=== PATIENT | female | born 1955 | race Caucasian/White ===

== ENCOUNTER 2019-08-29 16:11 | Outpatient (REF) | payer BC, SELFPAY | END 2019-08-29 16:31 | LOC: NCHCN 16:11 | PROVIDERS: PCP Internal Medicine; Visit Provider Nurse Practitioner Family | DX: N39.0 Urinary tract infection, site not specified (principal) | CPT/HCPCS: 87077; 87086; 87186 ==

== ENCOUNTER 2020-03-22 14:33 | Outpatient (REF) | payer BC, SELFPAY ==
[2020-03-22 19:46] LABS: Bilirubin Negative (Negative); Blood Trace-intact (Negative); Clarity Clear (Clear); Glucose Negative (Negative); Ketones Negative (Negative); Leukocyte Esterase Negative (Negative); Nitrite Negative (Negative); Specific Gravity <= 1.005 (1.005-1.025); Urobilinogen 0.2 EU/dL (Up TO 0.2)
[2020-03-22 19:55] LABS: Bacteria Negative HPF (Negative); C & S Indicated? No; Casts Negative LPF (Negative); Crystals Negative HPF (Negative); Epithelial Cells Few HPF (Negative); Mucus Negative (Negative); RBC 0-2 HPF (0-2); WBC 0-2 HPF (0-5)
== END 2020-03-22 14:53 ==
LOC: NCHCN 14:33
PROVIDERS: PCP Internal Medicine; Visit Provider Nurse Practitioner Family
DX: R35.0 Frequency of micturition (principal)
CPT/HCPCS: 81003; 81015

== ENCOUNTER 2020-03-26 08:05 | Outpatient (REF) | payer BC, SELFPAY ==
[2020-03-26 19:11] LABS: ALT 20 U/L (14-59); AST 30 U/L (15-37); Albumin 3.7 g/dL (3.4-5.0); Alkaline Phosphatase 50 U/L (46-116); Anion Gap 6.9 mmol/L (3-11); BUN 11 mg/dL (7-18); Bilirubin, Total 0.8 mg/dL (0.2-1.0); CO2 29.1 mmol/L (21.0-32.0); CREATININE 0.89 mg/dL (0.55-1.02); Calcium 9.3 mg/dL (8.5-10.1); Chloride 100 mmol/L (98-107); Glucose 74 mg/dL (74-106); Sodium 136 mmol/L (136-145); Total Protein 6.8 g/dL (6.4-8.2)
== END 2020-03-26 08:25 ==
LOC: NCHCN 08:05
PROVIDERS: PCP Internal Medicine; Visit Provider Nurse Practitioner
DX: Z00.00 Encounter for general adult medical examination without abnormal findings (principal); I10 Essential (primary) hypertension
CPT/HCPCS: 80053

== ENCOUNTER 2020-09-17 13:28 | Outpatient (REF) | payer BC, SELFPAY ==
[2020-09-17 19:51] LABS: HCT 36.5 % (36.0-46.0); HGB 12.9 g/dL (11.2-15.7); MCH 34.1 pg (27.0-33.0); MCHC 35.3 % (32.0-36.0); MCV 96.6 fL (80-95); MPV 10.4 fL (8.0-11.0); Platelet Count 252 10^3/uL (130-400); RBC 3.78 10^6/uL (3.93-5.22); RDW 11.7 % (11.7-14.6); RDW-SD 41.2 fL; WBC 5.93 10^3/uL (4.4-10.8)
[2020-09-17 20:04] LABS: Iron 89 ug/dL (50-170); Total Iron Binding Capacity 286 ug/dL (250-450); Transferrin Sat 31 % (15-50)
[2020-09-17 20:11] LABS: Anion Gap 9.5 mmol/L (3-11); BUN 11 mg/dL (7-18); CO2 28.5 mmol/L (21.0-32.0); CREATININE 0.8 mg/dL (0.55-1.02); Calcium 9.3 mg/dL (8.5-10.1); Chloride 98 mmol/L (98-107); Glucose 98 mg/dL (74-106); Potassium 3.8 mmol/L (3.5-5.1); Sodium 136 mmol/L (136-145); TSH (W/Ref FT4) 2.18 uIU/mL (0.36-3.74)
== END 2020-09-17 13:29 | disposition home or self-care (01) ==
LOC: NCHCN 13:28
PROVIDERS: PCP Internal Medicine; Visit Provider Nurse Practitioner Family
DX: I10 Essential (primary) hypertension (principal); R20.8 Other disturbances of skin sensation; M79.18 Myalgia, other site
CPT/HCPCS: 80048; 85027; 83540; 83550; 83735; 84443

== ENCOUNTER 2021-01-06 18:19 | Emergency (ER) | payer BC, SELFPAY | END 2021-01-06 18:59 | PROVIDERS: PCP Internal Medicine | DX: Z53.21 Procedure and treatment not carried out due to patient leaving prior to being seen by health care provider (principal) ==

== ENCOUNTER 2021-03-28 01:57 | Outpatient (CLI) | payer BC, SELFPAY ==
[2021-03-28 10:43] LABS: Source Nasal/Nares
[2021-03-28 13:18] LABS: COVID-19 PCR Negative (Negative)
== END 2021-03-28 01:58 | disposition home or self-care (01) ==
LOC: LBO 01:58
PROVIDERS: PCP Physician Assistant; Visit Provider Ophthalmology
DX: Z20.822 Contact with and (suspected) exposure to COVID-19 (principal); Z01.818 Encounter for other preprocedural examination
CPT/HCPCS: 87635

== ENCOUNTER 2021-03-31 06:26 | Day surgery (SDC) | payer BC, SELFPAY ==
[2021-03-31 06:34] VITALS: BP 142/94; PULSE 54; RESP 16; TEMP 36.4; O2SAT 99
[2021-03-31] MEDS: Tropicam./Phenyleph. (1/2.5%) 5 ML BTL OS ×3 (06:45→06:55)
--- NOTE | 2021-03-31 06:55 | W.ANESPRE ---
General Info Date of Service Date Performed: 03/31/21 Height: 5 ft 6.1 in Weight: 62.2 kg Body Mass Index (BMI): 22.0 Surgical Procedure: Operation Date: 03/31/21 07:40 Proposed Procedures Side Surgeon p Cataract Extraction with IOL Implant Left Mo Parker MD Meds Allergies and Home Medications Allergies Allergy/AdvReac Type Severity Reaction Status Date / Time ciprofloxacin [From Cipro] Allergy Severe Skin Rash Unverified 03/27/21 11:13 Sulfa (Sulfonamide Allergy Severe Skin Rash Unverified 03/27/21 11:13 Antibiotics) Home Medication Medication Instructions Recorded atenolol 25 mg PO DAILY 08/10/17 lisinopril 20 mg PO DAILY 03/27/21 Current Visit Medications: Current Medications Generic Name Dose Route Start Last Admin Trade Name Freq PRN Reason Stop Dose Admin Acetaminophen 1,000 mg 03/31/21 06:00 Acetaminophen 500 Mg Tab PO Q4H PRN PRN Miscellaneous Medication 0 ml 03/31/21 06:00 Prednisolone 1%, Moxifloxacin 0.5%, Nepafenac 0.1% 5ml Btl OS DIRECTED ALYCIA Miscellaneous Medication 0 ml 03/31/21 06:00 03/31/21 06:55 Tropicam./Phenyleph. (1/2.5%) 5 Ml Btl OS 1 drp DIRECTED ALYCIA Administration Tetracaine HCl 0 ml 03/31/21 06:00 Tetracaine 0.5% 4 Ml Btl OS DIRECTED ALYCIA PFSH Active Problems Active Problems: Problem Status Onset Code Posterior subcapsular age-related cataract of left eye H25.042 Nuclear sclerotic cataract of left eye H25.12 Medical History Medical History (Updated 03/29/21 @ 10:17 by Mo Parker MD) Hypertension Surgical History Surgical History (Updated 03/27/21 @ 11:23 by Priyanka Pineda RN) History of colonoscopy History of surgery tennis elbow Tobacco Smoking/Tobacco Use Status: Former Tobacco Use Substance Use Substance use: Rarely Substance use type: marijuana Vital Signs and Lab Results Vital Signs Most Recent Vital Signs in EMR: Most Recent Vital Signs Temp Pulse Resp BP Pulse Ox 36.4 C L 54 L 16 142/94 H 99 03/31/21 06:34 03/31/21 06:34 03/31/21 06:34 03/31/21 06:34 03/31/21 06:34 Lab Results Blood Type / Crossmatch: No Data to Display Complete Blood Count: No Data to Display Complete Metabolic Panel: No Data to Display Liver Function Panel: No Data to Display Coagulation Panel: No Data to Display Cardiac Panel: No Data to Display Arterial Blood Gas: No Data to Display Venous Blood Gas: No Data to Display Pancreas Panel: No Data to Display Thyroid Panel: No Data to Display Infectious Disease: Coronavirus (COVID-19)(PCR) Negative (Negative) 03/28/21 08:27 03/28/21 Coronavirus 2019 Source Nasal/Nares 03/28/21 08:27 03/28/21 Blood Cultures: No Data to Display Toxicology Panel: No Data to Display Anesthesia Assessment and Plan Anesthesia History Personal History: No History of Anesthesia Complications Family History: No Family History of Anesthesia Complications Exercise Tolerance Exercise Tolerance: Metabolic Equivalents>4 Pertinent Negatives Pertinent Negatives: No Symptoms of GERD, No Major Cardiovascular Symptoms or Complaints, No Major Pulmonary Symptoms or Complaints and No History of CVA/TIA Cardiac & Pulmonary Exam Cardiac Exam: Normal S1/S2 Heart Sounds Pulmonary Exam: Clear Bilateral Breath Sounds Airway Exam Known Difficult Airway: No Mallampati Class: 1 Mouth Opening: Normal (> 3cm) Thyromental Distance: Greater than 3 cm Neck Range of Motion: Full ROM Neck Circumference: Normal Teeth Condition: Normal Dentition Airway Comments: #11 crowns ASA Classification ASA Score: ASA 2 Emergency Case?: No NPO Status NPO Status: NPO Clears >2 hours, Solids >8 hours Anesthesia Plan Resuscitation Status: Full Code Anesthesia Technique: MAC Anesthesia Airway Planned: Natural Airway Monitors Used: Standard Monitors
[2021-03-31 07:01] VITALS: BMI 22.0
[2021-03-31] MEDS: Balanced Salt Soln.-PLUS 500 ML BAG (07:35)
[2021-03-31] MEDS: Lidocaine 1% Pres-Free 5 ML VIAL (07:36)
[2021-03-31] MEDS: Lidocaine 2% Jelly 6 ML SYR (07:37)
[2021-03-31] MEDS: Duovisc Viscoelastic System EACH 1 EACH (07:37)
[2021-03-31] MEDS: Povidone-Iodine Ophth 30 ML BTL (07:38)
[2021-03-31] MEDS: Tetracaine 0.5% 4 ML BTL OS (07:38)
--- NOTE | 2021-03-31 07:54 | W.ANESPOSTOP ---
Postoperative Evaluation Date, Time and Location Date Performed: 03/31/21 Time Performed: 07:54 Patient Location: Day Surgery Unit Vital Signs Most Recent Imported Vital Signs: Most Recent Vital Signs Temp Pulse Resp BP Pulse Ox 36.4 C L 54 L 16 142/94 H 99 03/31/21 06:34 03/31/21 06:34 03/31/21 06:34 03/31/21 06:34 03/31/21 06:34 Pain Score Most Recent Pain Score: Most Recent Pain Score Pain Level 0 03/31/21 06:34 Assessment Mental Status: Awake (Alert & Oriented to Patient Baseline) Airway and Respiratory Function: Patent airway with normal (patient baseline) respiratory exam Cardiovascular Function: Hemodynamically Stable Hydration Status: Adequately Hydrated Nausea & Vomiting: No Nausea or Vomiting Pain: Pt. Denies Any Pain Peripheral Nerve Block: Patient did not receive a nerve block
[2021-03-31 07:55] VITALS: BP 104/67; PULSE 51; RESP 16; TEMP 36.3; O2SAT 94
--- NOTE | 2021-03-31 07:55 | W.PM.DSUDISC ---
Discharge Plan Disposition Patient Disposition: HOME Condition: Good Discharge Details Attending Provider: Mo Parker Primary Care Provider: Demetris Duffy Home Meds and New Rx's Prescriptions: No Action lisinopril 20 mg Tablet 20 mg PO DAILY RF: 0 atenolol 25 MG tablet 25 mg PO DAILY RF: 0 Discharge Instructions Stand Alone Forms: Post-op Topical Cataract, Heath [place] ([facility]) Discharge Orders Discharge Orders: Discharge Order (Routine); Ordered 03/31/21 Ordered By: Mo Parker DS: Diagnosis Discharge Diagnosis (1) Posterior subcapsular age-related cataract of left eye: Status: Resolved (2) Nuclear sclerotic cataract of left eye: Status: Resolved
--- NOTE | 2021-03-31 07:56 | ROE_ITS ---
Date of service: 03/31/21 Time of Service: 07:56 Operative Note Operative Note DATE OF PROCEDURE: 03/31/21 PRE-OP DIAGNOSIS: Nuclear/posterior subcapsular cataract, left eye POST-OP DIAGNOSIS: same PROCEDURE: Cataract extraction using phacoemulsification with intraocular lens implant, left eye SURGEON: Mo Parker ANESTHESIA TYPE: Local By Surgeon and MAC Refer to Anesthesia Record PATHOLOGY: none sent COMPLICATIONS: None Patient was transported to: same day Patient's condition: stable Implants: Cade and Cade / [employer] Tecnis [id number] Indications: Progressive decreased vision due to cataract, left eye, with poor red reflex Procedure Description: CATARACT SURGERY OPERATIVE REPORT PREOPERATIVE DIAGNOSIS: 1. Nuclear/posterior subcapsular cataract, left eye POSTOPERATIVE DIAGNOSIS: Same OPERATION: 1. Cataract extraction using phacoemulsification with posterior chamber intraocular lens implant, left eye. IOL: IOL Shipping Receiving Manager/Model: Cade & Cade / GERMÁN Tecnis [id number] IOL Power: + 18.5 diopters IOL Serial Number: [id number] Optic Diameter: 6.0 mm Haptic/Overall Diameter: 13.0 mm PHACO INFO: [employer] - [employer] [place] Vision System with OZil and Active Fluidics Cumulative Dispersed Energy (CDE): 5.28 seconds SURGEON: Mo Parker MD, ALESIA ANESTHESIA: Monitored A [facility] (MAC), with local sub-tenon's anesthetic infiltration COMPLICATIONS: None SPECIMENS: None INDICATIONS FOR PROCEDURE: The patient is a 65-year-old lady with history of diminished visual acuity in her left eye. She is noted to have a moderate nuclear and posterior subcapsular cataract. The option of cataract surgery was offered to the patient and she felt she was symptomatic enough that she wished to proceed. PROCEDURE: The correct surgical eye was identified and marked as the left eye and the pupil was dilated in the preoperative area using mydriatics and cycloplegics. The dilated pupil size was 6.5 mm. She elected to proceed without oral sedation. The patient was brought to the operating room where cardiopulmonary monitoring was instituted and surgical time-out was performed, confirming the correct operative eye and IOL power. Topical anesthesia was administered and ophthalmic povidone-iodine 5% was instilled into the conjunctival fornices. Lidocaine gel was applied to the cornea and the kian-ocular area was prepped with Betadine 10% solution and draped in the usual sterile fashion for intraocular surgery, including an aperture drape. A Tegaderm transparent film dressing was cut in half and used to cover the lashes and lid margins. Care was taken to sequester the lashes and lid margins under the Tegaderm dressing. A lid speculum was placed between the lids of the operative eye and the Mil-Flavio operating microscope was maneuvered into position. Paul scissors were then used to make a conjunctival buttonhole approximately 6mm posterior to the limbus in the inferonasal quadrant. Blunt dissection was carried out to expose bare sclera, and a blunt-tipped sub-tenon?s anesthesia cannula was introduced and passed posteriorly along the globe where non- preserved plain lidocaine was injected into posterior sub-Tenon?s space. A sideport knife was used to make a paracentesis port superiorly/superiortemporally. Intraocular phenylephrine/lidocaine was injected int the anterior chamber.. The anterior chamber was filled with viscoelastic. A 2.4mm keratome knife was used to create a half-thickness groove at the limbus and then to construct a three-plane near-clear corneal tunnel extending 2.0mm into clear cornea at the 3:00 position. A flap was raised on the anterior capsule and capsulorhexis forceps were used to complete a continuous curvilinear capsulorhexis of 5.0 mm. Balanced salt solution was then used to perform cortical cleaving hyd rodissection and nuclear hydrodelineation until the lens could be freely rotated within the capsular bag. The lens nucleus was then disassembled and removed within the capsular bag and iris plane using phacoemulsification. Residual cortical material was removed using the 45-degree angled silicone I/A tip with 0.3mm port. The posterior capsule was carefully polished to remove as much residual lens epithelial cells as safely possible. The capsular bag was then inflated and the anterior chamber deepened with viscoelastic. The lens implant described above was inserted into the capsular bag using the GERMÁN [place] Injector. A Kuglen hook was used to dial the IOL into position. Residual viscoelastic was then removed first from posterior to the IOL, then from the anterior chamber using the I/A handpiece. The lens implant was noted to center nicely within the capsular bag. The incisions were stromally hydrated, and the anterior chamber was reformed using BSS. Then 0.5cc of moxifloxacin 1.0mg/ml were injected into the capsular bag and anterior chamber. The incisions were checked with a Weck spear and found to be secure. Several drops of ophthalmic povidone-iodine 5% were then applied to the eye followed by two drops of Imprimis combination prednisolone/moxifloxacin/nepafenac solution. The drapes were removed and a clear plastic protective eye shield was placed over the eye. The patient was then returned to Same Day Surgery in stable condition.
[2021-03-31 08:25] VITALS: BP 113/75; PULSE 52; RESP 16; TEMP 36.2; O2SAT 99
== END 2021-03-31 08:28 | disposition home or self-care (01) ==
PROVIDERS: PCP Physician Assistant; Visit Provider Ophthalmology
PROC: (CPT 66984; principal; 2021-03-31 07:30)
DX: H25.042 Posterior subcapsular polar age-related cataract, left eye (principal)
CPT/HCPCS: 66984; V2632

== ENCOUNTER 2021-04-11 02:16 | Outpatient (CLI) | payer BC, SELFPAY ==
[2021-04-11 10:28] LABS: Source Nasal/Nares
[2021-04-11 18:55] LABS: COVID-19 PCR Negative (Negative)
== END 2021-04-11 02:17 | disposition home or self-care (01) ==
LOC: LBO 02:16
PROVIDERS: PCP Physician Assistant; Visit Provider Ophthalmology
DX: Z20.822 Contact with and (suspected) exposure to COVID-19 (principal); Z01.818 Encounter for other preprocedural examination
CPT/HCPCS: 87635

== ENCOUNTER 2021-04-14 08:04 | Day surgery (SDC) | payer BC, SELFPAY ==
--- NOTE | 2021-04-14 07:42 | W.ANESPRE ---
General Info Date of Service Date Performed: 04/14/21 Height: 5 ft 6.1 in Weight: 62.2 kg Body Mass Index (BMI): 22.0 Surgical Procedure: Operation Date: 04/14/21 10:40 Proposed Procedures Side Surgeon p Lens exchange Left Mo Parker MD Meds Allergies and Home Medications Allergies Allergy/AdvReac Type Severity Reaction Status Date / Time ciprofloxacin [From Cipro] Allergy Severe Skin Rash Unverified 04/10/21 14:43 Sulfa (Sulfonamide Allergy Severe Skin Rash Unverified 04/10/21 14:43 Antibiotics) Home Medication Medication Instructions Recorded atenolol 25 mg PO DAILY 08/10/17 lisinopril 20 mg PO DAILY 03/27/21 Current Visit Medications: Current Medications Generic Name Dose Route Start Last Admin Trade Name Freq PRN Reason Stop Dose Admin Acetaminophen 1,000 mg 04/14/21 06:00 Acetaminophen 500 Mg Tab PO Q4H PRN PRN Miscellaneous Medication 0 ml 04/14/21 06:00 Prednisolone 1%, Moxifloxacin 0.5%, Nepafenac 0.1% 5ml Btl OS DIRECTED [facility] Miscellaneous Medication 0 ml 04/14/21 06:00 Tropicam./Phenyleph. (1/2.5%) 5 Ml Btl OS DIRECTED ALYCIA Tetracaine HCl 0 ml 04/14/21 06:00 Tetracaine 0.5% 4 Ml Btl OS DIRECTED ALYCIA PFSH Active Problems Active Problems: Problem Status Onset Code Other mechanical complication of intraocular lens, initial encounter T85.29XA Posterior subcapsular age-related cataract of left eye H25.042 Nuclear sclerotic cataract of left eye H25.12 Medical History Medical History (Updated 04/13/21 @ 16:28 by Mo Parker MD) Hypertension Surgical History Surgical History History of colonoscopy History of surgery tennis elbow Tobacco Smoking/Tobacco Use Status: Former Tobacco Use Substance Use Substance use: Rarely Substance use type: marijuana Vital Signs and Lab Results Lab Results Blood Type / Crossmatch: No Data to Display Complete Blood Count: No Data to Display Complete Metabolic Panel: No Data to Display Liver Function Panel: No Data to Display Coagulation Panel: No Data to Display Cardiac Panel: No Data to Display Arterial Blood Gas: No Data to Display Venous Blood Gas: No Data to Display Pancreas Panel: No Data to Display Thyroid Panel: No Data to Display Infectious Disease: Coronavirus (COVID-19)(PCR) Negative (Negative) 04/11/21 08:30 04/11/21 Coronavirus 2019 Source Nasal/Nares 04/11/21 08:30 04/11/21 Blood Cultures: No Data to Display Toxicology Panel: No Data to Display Anesthesia Assessment and Plan Anesthesia History Personal History: No History of Anesthesia Complications Family History: No Family History of Anesthesia Complications Exercise Tolerance Exercise Tolerance: Metabolic Equivalents>4 Pertinent Negatives Pertinent Negatives: No Symptoms of GERD, No Major Cardiovascular Symptoms or Complaints, No Major Pulmonary Symptoms or Complaints and No History of CVA/TIA Cardiac & Pulmonary Exam Cardiac Exam: Normal S1/S2 Heart Sounds Pulmonary Exam: Clear Bilateral Breath Sounds Airway Exam Known Difficult Airway: No Mallampati Class: 1 Mouth Opening: Normal (> 3cm) Thyromental Distance: Greater than 3 cm Neck Range of Motion: Full ROM Neck Circumference: Normal Teeth Condition: Normal Dentition ASA Classification ASA Score: ASA 2 Emergency Case?: No NPO Status NPO Status: NPO Clears >2 hours, Solids >8 hours Anesthesia Plan Resuscitation Status: Full Code Anesthesia Technique: MAC Anesthesia Airway Planned: Natural Airway Monitors Used: Standard Monitors Preoperative Comments:: Patient appears significantly anxious, reports feeling anxious. Dr. Parker present and requesting an MKO. Discussed options with the patient and she consents to an MKO.
[2021-04-14 08:49] VITALS: BMI 22.0
[2021-04-14] MEDS: Tropicam./Phenyleph. (1/2.5%) 5 ML BTL OS ×3 (08:52→09:07)
[2021-04-14 08:53] VITALS: BP 177/96; PULSE 57; RESP 16; TEMP 36.3; O2SAT 99
[2021-04-14] MEDS: Lidocaine 2% Jelly 6 ML SYR (10:20)
[2021-04-14] MEDS: Povidone-Iodine Ophth 30 ML BTL (10:21)
[2021-04-14] MEDS: Tetracaine 0.5% 4 ML BTL OS (10:21)
[2021-04-14] MEDS: Lidocaine 1% Pres-Free 5 ML VIAL (10:30)
[2021-04-14] MEDS: Balanced Salt Soln.-PLUS 500 ML BAG (10:32)
[2021-04-14] MEDS: Duovisc Viscoelastic System EACH 1 EACH ×2 (10:33→10:55)
[2021-04-14 11:15] VITALS: BP 151/90; PULSE 64; RESP 16; TEMP 36.9; O2SAT 98
--- NOTE | 2021-04-14 11:23 | W.PM.DSUDISC ---
Discharge Plan Disposition Patient Disposition: HOME Condition: Good Discharge Details Attending Provider: Mo Parker Primary Care Provider: Demetris Duffy Home Meds and New Rx's Prescriptions: No Action lisinopril 20 mg Tablet 20 mg PO DAILY RF: 0 atenolol 25 MG tablet 25 mg PO DAILY RF: 0 Discharge Instructions Stand Alone Forms: Post-op Topical Cataract, Heath Reno ([facility]) Discharge Orders Discharge Orders: Discharge Order (Routine); Ordered 04/14/21 Ordered By: Mo Parker DS: Diagnosis Discharge Diagnosis (1) Other mechanical complication of intraocular lens, initial encounter: Status: Resolved
--- NOTE | 2021-04-14 11:25 | W.PM.OP ---
Date of service: 04/14/21 Time of Service: 11:25 Operative Note Operative Note DATE OF PROCEDURE: 04/14/21 PRE-OP DIAGNOSIS: Incorrect intraocular lens power, left eye POST-OP DIAGNOSIS: same PROCEDURE: Intraocular lens implant exchange, left eye SURGEON: Mo Parker ANESTHESIA TYPE: Local By Surgeon and MAC Refer to Anesthesia Record PATHOLOGY: none sent COMPLICATIONS: None Patient was transported to: same day Patient's condition: stable Implants: Cade and Cade / [employer] Tecnis [id number] Indications: Incorrect intraocular lens power, left eye Procedure Description: CATARACT SURGERY OPERATIVE REPORT PREOPERATIVE DIAGNOSIS: 1. Incorrect intraocular lens implant, left eye POSTOPERATIVE DIAGNOSIS: Same OPERATION: 1. Intraocular lens implant exchange, left eye IOL: IOL Human Services Care Specialist/Model: Cade & Cade / GERMÁN Tecnis [id number] IOL Power: + 22.0 diopters IOL Serial Number: [id number] Optic Diameter: 6.0 mm Haptic/Overall Diameter: 13.0 mm PHACO INFO: Varun [employer] Vision System with OZil and Active Fluidics Cumulative Dispersed Energy (CDE): 0.0 seconds SURGEON: Mo Parker MD, ALESIA ANESTHESIA: Monitored A [facility] [place] [place] sub-tenon's anesthetic infiltration COMPLICATIONS: None SPECIMENS: None INDICATIONS FOR PROCEDURE: The patient is a 65-year old lady who underwent successful, uncomplicated cataract extraction in the left eye with lens implantation. However, intraocular lens implant calculations were for [place], best distance vision, and the patient desired best near vision in the left eye. Spectacle or contact lens correction are unacceptable options. She desires myopia in the left eye. Intraocular lens exchange is recommended to correct her left eye for best near vision. A piggyback lens was also considered, but given the intact posterior capsule and the recent cataract surgery left eye, intraocular lens exchange is likely the best solution. PROCEDURE: The correct surgical eye was identified and marked as the left eye and the pupil was dilated in the preoperative area using mydriatics and cycloplegics. The dilated pupil size was 7.0 mm. Oral sedation was administered in the form of an Imprimis MKO Melt (midazolam 3mg/ketamine 25mg/ondansetron 2mg). The patient was brought to the operating room where cardiopulmonary monitoring was instituted and surgical time-out was performed, confirming the correct operative eye and IOL power and 5 0 refractive target. Topical anesthesia was administered and ophthalmic povidone-iodine 5% was instilled into the conjunctival fornices. Lidocaine gel was applied to the cornea and the kian-ocular area was prepped with Betadine 10% solution and draped in the usual sterile fashion for intraocular surgery, including an aperture drape. A Tegaderm transparent film dressing was cut in half and used to cover the lashes and lid margins. Care was taken to sequester the lashes and lid margins under the Tegaderm dressing. A lid speculum was placed between the lids of the operative eye and the Mil-Flavio operating microscope was maneuvered into position. Paul scissors were then used to make a conjunctival buttonhole approximately 6mm posterior to the limbus in the inferonasal quadrant. Blunt dissection was carried out to expose bare sclera, and a blunt-tipped sub-tenon?s anesthesia cannula was introduced and passed posteriorly along the globe where non-preserved plain lidocaine was injected into posterior sub-Tenon?s space. A sideport knife was used to make a paracentesis port superiorly/superiortemporally. Intraocular phenylephrine/lidocaine was injected int the anterior chamber.. The anterior chamber was filled with Viscoat. A Vaunte nucleus manipulator was then used to open the original phaco incision at the 3 o'clock position. The Kuglen hook was then used to gently probe the anterior capsular/intraocular lens junction. The anterior capsular leaflet was freely mobile from the anterior IOL surface for essentially 360 degrees. Viscoat was then injected under the anterior capsular leaflet to expand the capsular fornices/equator. A small wave of Viscoat was visible behind the IOL. The Kuglen hook was then used to gently dial the haptics out of the capsular bag first superiorly, then inferiorly. The IOL was then positioned in the anterior chamber. Healon pro was then used to expand the capsular bag, and the lens implant described above was inserted into the capsular bag using the GERMÁN [place] Injector. A Kuglen hook was used to dial the IOL into position a haptics oriented at the 6:00/12 o'clock position. Additional Viscoat was then injected anterior and posterior to the IOL and the anterior chamber. MST micro graspers were then introduced through the paracentesis port and used to fixate the IOL. Micro intraocular lens cutting scissors were then used to bisect the IOL without difficulty. Additional Viscoat was then injected into the anterior chamber. The phaco incision was then enlarged to approximately 3.0 mm for easier plantation of the lens halves. A Kuglen hook was used to position the superiormost lens half adjacent to the phaco incision. The micrograspers were then used to remove the first half of the IOL without difficulty. Second half of the IOL was then maneuvered into the appropriate position for extraction, which was performed without difficulty using the micrograspers. Healon pro was then used to displace most of the Viscoat from the anterior chamber and angle. Residual viscoelastic was then removed first from posterior to the IOL, then from the anterior chamber using the I/A handpiece. The lens implant was noted to center nicely within the capsular bag. The incisions were stromally hydrated, and the anterior chamber was reformed using BSS. Miostat was injected at the pupillary margin to assist in postop IOP control, then 0.5cc of moxifloxacin 1.0mg/ml were injected into the capsular bag and anterior chamber. The incisions were checked with a Weck spear and found to be secure. Several drops of ophthalmic povidone-iodine 5% were then applied to the eye followed by two drops of Imprimis combination prednisolone/moxifloxacin/nepafenac solution. The drapes were removed and a clear plastic protective eye shield was placed over the eye. The patient was then returned to Same Day Surgery in stable condition.
[2021-04-14 11:43] VITALS: BP 139/85; PULSE 58; RESP 16; TEMP 36.1; O2SAT 99
--- NOTE | 2021-04-14 11:44 | W.ANESPOSTOP ---
Postoperative Evaluation Date, Time and Location Date Performed: 04/14/21 Time Performed: 11:44 Patient Location: Day Surgery Unit Vital Signs Most Recent Imported Vital Signs: Most Recent Vital Signs Temp Pulse Resp BP Pulse Ox 36.9 C 64 16 151/90 H 98 04/14/21 11:15 04/14/21 11:15 04/14/21 11:15 04/14/21 11:15 04/14/21 11:15 Pain Score Most Recent Pain Score: Most Recent Pain Score Pain Level 0 04/14/21 11:15 Assessment Mental Status: Awake (Alert & Oriented to Patient Baseline) Airway and Respiratory Function: Patent airway with normal (patient baseline) respiratory exam Cardiovascular Function: Hemodynamically Stable Hydration Status: Adequately Hydrated Nausea & Vomiting: No Nausea or Vomiting Pain: Pt. Denies Any Pain Peripheral Nerve Block: Other (Local by Dr. Parker)
== END 2021-04-14 11:50 | disposition home or self-care (01) ==
PROVIDERS: PCP Physician Assistant; Visit Provider Ophthalmology
PROC: (CPT 66986; principal; 2021-04-14 10:30)
DX: T85.29XA Other mechanical complication of intraocular lens, initial encounter (principal); I10 Essential (primary) hypertension
CPT/HCPCS: 66986; V2632

== ENCOUNTER 2021-05-02 03:19 | Outpatient (CLI) | payer BC, SELFPAY ==
[2021-05-02 10:49] LABS: Source Nasal/Nares
[2021-05-02 20:16] LABS: COVID-19 PCR Negative (Negative)
== END 2021-05-02 03:20 | disposition home or self-care (01) ==
LOC: LBO 03:19
PROVIDERS: PCP Physician Assistant; Visit Provider Ophthalmology
DX: Z20.822 Contact with and (suspected) exposure to COVID-19 (principal); Z01.818 Encounter for other preprocedural examination
CPT/HCPCS: 87635

== ENCOUNTER 2021-05-05 09:44 | Day surgery (SDC) | payer BC, SELFPAY ==
--- NOTE | 2021-05-05 06:40 | ANES.PREOP_ITS ---
General Info Date of Service Date Performed: 05/05/21 Height: 5 ft 6.1 in Weight: 61.5 kg Body Mass Index (BMI): 21.8 Surgical Procedure: Operation Date: 05/05/21 12:40 Proposed Procedures Side Surgeon p Cataract Extraction with IOL Implant Right Mo Parker MD Meds Allergies and Home Medications Allergies Allergy/AdvReac Type Severity Reaction Status Date / Time ciprofloxacin [From Cipro] Allergy Severe Skin Rash Unverified 05/05/21 10:15 Sulfa (Sulfonamide Allergy Severe Skin Rash Unverified 05/05/21 10:15 Antibiotics) Home Medication Medication Instructions Recorded atenolol 25 mg PO DAILY 08/10/17 valsartan 160 mg PO DAILY 05/01/21 budesonide-formoterol [Symbicort] 2 puff INHALATION BID 05/02/21 Current Visit Medications: Current Medications Generic Name Dose Route Start Last Admin Trade Name Freq PRN Reason Stop Dose Admin Acetaminophen 1,000 mg 05/05/21 06:00 Acetaminophen 500 Mg Tab PO Q4H PRN PRN Miscellaneous Medication 0 ml 05/05/21 06:00 Prednisolone 1%, Moxifloxacin 0.5%, Nepafenac 0.1% 5ml Btl OD DIRECTED [facility] Miscellaneous Medication 0 ml 05/05/21 06:00 Tropicam./Phenyleph. (1/2.5%) 5 Ml Btl OD DIRECTED [facility] Tetracaine HCl 0 ml 05/05/21 06:00 Tetracaine 0.5% 4 Ml Btl OD [facility] Active Problems Active Problems: Problem Status Onset Code Posterior subcapsular age-related cataract, right eye H25.041 Nuclear sclerotic cataract of right eye H25.11 Other mechanical complication of intraocular lens, initial encounter T85.29XA Posterior subcapsular age-related cataract of left eye H25.042 Nuclear sclerotic cataract of left eye H25.12 Medical History Medical History (Updated 05/02/21 @ 20:49 by Mo Parker MD) Hypertension Surgical History Surgical History History of colonoscopy History of surgery tennis elbow Tobacco Smoking/Tobacco Use Status: Former Tobacco Use Substance Use Substance use: Rarely Substance use type: marijuana Details: pt denies any use today Vital Signs and Lab Results Vital Signs Most Recent Vital Signs in EMR: Temp Pulse Resp BP Pulse Ox 36.3 C L 59 L 16 158/93 H 100 05/05/21 10:18 05/05/21 10:18 05/05/21 10:18 05/05/21 10:18 05/05/21 10:18 Lab Results Blood Type / Crossmatch: No Data to Display Complete Blood Count: No Data to Display Complete Metabolic Panel: No Data to Display Liver Function Panel: No Data to Display Coagulation Panel: No Data to Display Cardiac Panel: No Data to Display Arterial Blood Gas: No Data to Display Venous Blood Gas: No Data to Display Pancreas Panel: No Data to Display Thyroid Panel: No Data to Display Infectious Disease: Coronavirus (COVID-19)(PCR) Negative (Negative) 05/02/21 08:33 05/02/21 Coronavirus 2019 Source Nasal/Nares 05/02/21 08:33 05/02/21 Blood Cultures: No Data to Display Toxicology Panel: No Data to Display Anesthesia Assessment and Plan Anesthesia History Personal History: No History of Anesthesia Complications Family History: No Family History of Anesthesia Complications Exercise Tolerance Exercise Tolerance: Metabolic Equivalents>4 Cardiac & Pulmonary Exam Cardiac Exam: Normal S1/S2 Heart Sounds Pulmonary Exam: Clear Bilateral Breath Sounds Implantable Cardiac Device Does patient have a Pacemaker or an ICD?: No Airway Exam Known Difficult Airway: No Mallampati Class: 1 Mouth Opening: Normal (> 3cm) Thyromental Distance: Greater than 3 cm Neck Range of Motion: Full ROM Neck Circumference: Normal Teeth Condition: Normal Dentition Airway Comments: #11 crowns ASA Classification ASA Score: ASA 2 Emergency Case?: No NPO Status NPO Status: NPO Clears >2 hours, Solids >8 hours Anesthesia Plan Resuscitation Status: Full Code Anesthesia Technique: MAC Anesthesia Airway Planned: Natural Airway Monitors Used: Standard Monitors Preoperative Comments:: 65 yo female for cataract removal. Previous Cat: Patient appears significantly anxious, reports feeling anxious. Dr. Parker present and requesting an MKO. Discussed options with the patient and she consents to an MKO. No change in health history.
--- NOTE | 2021-05-05 06:45 | HPE_ITS ---
Date of service: 05/05/21 Assessment and Plan Assessment and plan (1) Posterior subcapsular age-related cataract, right eye: Status: Acute Assessment and plan: Visually significant cataract, right eye. Plan is for cataract extraction with lens implantation of the right eye, postoperative refractive target for distance. (2) Nuclear sclerotic cataract of right eye: Status: Acute Assessment and plan: Visually significant cataract of the right eye. Plan is for cataract extraction with lens implantation of the right eye, postoperative refractive target for distance. History of Present Illness History of Present Illness Chief Complaint: Progressive decreased vision, right eye Narrative: The patient is a 65-year-old lady with history of natural monovision, right eye distance, left eye near. She has a history of retinal detachment of the right eye with prior surgical repair by laser retinopexy. She developed symptomatic bilateral cataracts and underwent cataract surgery in the left eye on 03/31/2021 with implantation of a lens implant to correct for emmetropia. She could not tolerate distance correction in her left eye and an IOL exchange was performed 2 weeks later with a postoperative refractive target of -2.50. She is now doing well postoperatively and her nearsighted left eye. She presents for cataract surgery on the right eye with refractive target of emmetropia. Review of Systems All systems reviewed & are unremarkable except as noted in HPI and below PFSH Medical History Hypertension Surgical History (Updated 05/05/21 @ 10:14 by [place] Lara) History of colonoscopy History of surgery tennis elbow Hx of cataract surgery Social History Smoking/Tobacco Use Status: Former Tobacco Use Smoking risk assessment performed?: Yes Drug use: Rarely Substance use type: marijuana Details: pt denies any use today Do you feel safe at home: Yes Do you feel safe in your relationship?: Yes Meds Allergies and Home Medications Allergies Allergy/AdvReac Type Severity Reaction Status Date / Time ciprofloxacin [From Cipro] Allergy Severe Skin Rash Unverified 05/05/21 10:15 Sulfa (Sulfonamide Allergy Severe Skin Rash Unverified 05/05/21 10:15 Antibiotics) Home Medications Medication Instructions Recorded Confirmed Type atenolol 25 mg PO DAILY 08/10/17 05/05/21 History valsartan 160 mg PO DAILY 05/01/21 05/05/21 History budesonide-formoterol [Symbicort] 2 puff INHALATION BID 05/02/21 05/05/21 History Exam Eyes General: appearance normal, both eyes and all related structures Visual Mcgregor: normal visual mcgregor by confrontation Alignment and Position: alignment normal Periorbital: periorbital findings normal Eyelids: eyelids normal Conjunctivae: conjunctivae normal Sclera: sclerae normal Cornea: corneas normal Pupils: PERRL EOM: EOM intact bilaterally Other: Slit-lamp examination reveals a moderate nuclear and posterior subcapsular cataract of the right eye. In the left eye there is a well- positioned PCIOL with clear posterior capsule. Funduscopic exam reveals disc cupping of 0.3 OU with normal vessels, macula and vitreous. In the right eye there are laser scars secondary to previous retinopexy. Resp Effort & Inspection: normal respiratory effort Auscultation: clear to auscultation bilaterally Cardio Rate: regular rate Rhythm: regular rhythm
[2021-05-05 10:18] VITALS: BP 158/93; PULSE 59; RESP 16; TEMP 36.3; O2SAT 100
[2021-05-05 10:24] VITALS: BMI 21.8
[2021-05-05] MEDS: Tropicam./Phenyleph. (1/2.5%) 5 ML BTL OD ×3 (10:25→10:35)
[2021-05-05] MEDS: Tetracaine 0.5% 4 ML BTL OD (10:56)
[2021-05-05] MEDS: Lidocaine 2% Jelly 6 ML SYR (10:57)
[2021-05-05] MEDS: Lidocaine 1% Pres-Free 5 ML VIAL (11:03)
[2021-05-05] MEDS: Duovisc Viscoelastic System EACH 1 EACH (11:05)
[2021-05-05] MEDS: Balanced Salt Soln.-PLUS 500 ML BAG (11:05)
[2021-05-05] MEDS: Povidone-Iodine Ophth 30 ML BTL (11:12)
[2021-05-05 11:20] VITALS: BP 143/88; PULSE 60; RESP 16; TEMP 36.6; O2SAT 97
--- NOTE | 2021-05-05 11:29 | W.PM.DSUDISC ---
Discharge Plan Disposition Patient Disposition: HOME Condition: Good Discharge Details Attending Provider: Mo Parker Primary Care Provider: Demetris Duffy Home Meds and New Rx's Prescriptions: No Action valsartan 160 mg tablet 160 mg PO DAILY RF: 0 budesonide-formoterol [Symbicort] 160-4.5 mcg/actuation HFA aerosol inhaler 2 puff INHALATION BID RF: 0 atenolol 25 MG tablet 25 mg PO DAILY RF: 0 Discharge Instructions Stand Alone Forms: Post-op Topical Cataract, Heath [place] (DSU) Discharge Orders Discharge Orders: Discharge Order (Routine); Ordered 05/05/21 Ordered By: Mo Parker DS: Diagnosis Discharge Diagnosis (1) Posterior subcapsular age-related cataract, right eye: Status: Resolved (2) Nuclear sclerotic cataract of right eye: Status: Resolved
--- NOTE | 2021-05-05 11:30 | ROE_ITS ---
Date of service: 05/05/21 Time of Service: 11:30 Operative Note Operative Note DATE OF PROCEDURE: 05/05/21 PRE-OP DIAGNOSIS: Nuclear/posterior subcapsular cataract, right eye POST-OP DIAGNOSIS: same PROCEDURE: Cataract extraction using phacoemulsification with intraocular lens implant, right eye SURGEON: Mo Parker ANESTHESIA TYPE: Local By Surgeon and MAC Refer to Anesthesia Record ESTIMATED BLOOD LOSS: 0 PATHOLOGY: none sent COMPLICATIONS: None Patient was transported to: same day Patient's condition: stable Implants: [employer]ade/GERMÁN Tecnis [id number] Indications: Progressive visual loss due to cataract, right eye Procedure Description: CATARACT SURGERY OPERATIVE REPORT PREOPERATIVE DIAGNOSIS: 1. Nuclear/posterior subcapsular cataract, right eye POSTOPERATIVE DIAGNOSIS: Same OPERATION: 1. Cataract extraction using phacoemulsification with posterior chamber intraocular lens implant, right eye. 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/Model: [employer]ade / GERM[employer]N Tecnis [id number] IOL Power: + 21.0 diopters IOL Serial Number: [id number] Optic Diameter: 6.0mm Haptic/Overall Diameter: 13.0mm PHACO INFO: Varun Portrurion Vision System with OZil and Active Fluidics Cumulative Dispersed Energy (CDE): 4.39 seconds SURGEON: Mo Parker MD, ALESIA ANESTHESIA: Monitored Anesthesia Care (MAC), with local sub-tenon's anesthetic infiltration COMPLICATIONS: None SPECIMENS: None INDICATIONS FOR PROCEDURE: The patient is a 65-year-old lady with history of diminished visual acuity in her right eye secondary to the development of nuclear and posterior subcapsular cataract. She has already undergone cataract surgery in the left eye, with pos toperative refractive target of myopia. She is doing well postoperatively in the left eye. She now presents for cataract surgery in the right eye. PROCEDURE: The correct surgical eye was identified and marked as the right eye and the pupil was dilated in the preoperative area using mydriatics and cycloplegics. The dilated pupil size was 7.0 mm. Oral sedation was administered in the form of an Imprimis MKO Melt (midazolam 3mg/ketamine 25mg/ondansetron 2mg). The patient was brought to the operating room where cardiopulmonary monitoring was instituted and surgical time-out was performed, confirming the correct operative eye and IOL power. Topical anesthesia was administered and ophthalmic povidone-iodine 5% was instilled into the conjunctival fornices. Lidocaine gel was applied to the cornea and the kian-ocular area was prepped with Betadine 10% solution and draped in the usual sterile fashion for intraocular surgery, including an aperture drape. A Tegaderm transparent film dressing was cut in half and used to cover the lashes and lid margins. Care was taken to sequester the lashes and lid margins under the Tegaderm dressing. A lid speculum was placed between the lids of the operative eye and the Mil-Flavio operating microscope was maneuvered into position. Paul scissors were then used to make a conjunctival buttonhole approximately 6mm posterior to the limbus in the inferonasal quadrant. Blunt dissection was carried out to expose bare sclera, and a blunt-tipped sub-tenon?s anesthesia cannula was introduced and passed posteriorly along the globe where non- preserved plain lidocaine was injected into posterior sub-Tenon?s space. A sideport knife was used to make a paracentesis port inferotemporally. Intraocular phenylephrine/lidocaine was injected into the anterior chamber. The anterior chamber was filled with viscoelastic. A 2.4mm keratome knife was used to create a half-thickness groove at the limbus and then to construct a three- plane near-clear corneal tunnel extending 2.0mm into clear cornea superiortemporally. A flap was raised on the anterior capsule and capsulorhexis forceps were used to complete a continuous curvilinear capsulorhexis of 4.8 mm. Balanced salt solution was then used to perform cortical cleaving hydrodissection and nuclear hydrodelineation until the lens could be freely rotated within the capsular bag. The lens nucleus was then disassembled and removed within the capsular bag and iris plane using phacoemulsification. Residual cortical material was removed using the I/A handpiece. The posterior capsule was carefully polished to remove as much residual lens epithelial cells as safely possible. The capsular bag was then inflated and the anterior chamber deepened with viscoelastic. The lens implant described above was inserted into the capsular bag using the GERMÁN [place] Injector. A Kuglen hook was used to dial the IOL into position. Residual viscoelastic was then removed first from posterior to the IOL, then from the anterior chamber using the I/A handpiece. The lens implant was noted to center nicely within the capsular bag. The incisions were stromally hydrated, and the anterior chamber was reformed using BSS. Then 0.5cc of moxifloxacin 1.0mg/ml were injected into the capsular bag and anterior chamber. The incisions were checked with a Weck spear and found to be secure. Several drops of ophthalmic povidone-iodine 5% were then applied to the eye followed by two drops of Imprimis combination prednisolone/moxifloxacin/nepafenac solution. The drapes were removed and a clear plastic protective eye shield was placed over the eye. The patient was then returned to Same Day Surgery in stable condition.
[2021-05-05 11:49] VITALS: BP 140/83; PULSE 62; RESP 16; TEMP 36.6; O2SAT 100
--- NOTE | 2021-05-05 12:28 | W.ANESPOSTOP ---
Postoperative Evaluation Date, Time and Location Date Performed: 05/05/21 Time Performed: 11:49 Patient Location: Day Surgery Unit Vital Signs Most Recent Imported Vital Signs: Most Recent Vital Signs Temp Pulse Resp BP Pulse Ox 36.6 C 62 16 140/83 100 05/05/21 11:49 05/05/21 11:49 05/05/21 11:49 05/05/21 11:49 05/05/21 11:49 Pain Score Most Recent Pain Score: Most Recent Pain Score Pain Level 0 05/05/21 11:49 Assessment Mental Status: Awake (Alert & Oriented to Patient Baseline) Airway and Respiratory Function: Patent airway with normal (patient baseline) respiratory exam Cardiovascular Function: Hemodynamically Stable Hydration Status: Adequately Hydrated Nausea & Vomiting: No Nausea or Vomiting Pain: Pt. Denies Any Pain Peripheral Nerve Block: Other (Local by Dr. Parker)
== END 2021-05-05 12:00 | disposition home or self-care (01) ==
PROVIDERS: PCP Physician Assistant; Visit Provider Ophthalmology
PROC: (CPT 66984; principal; 2021-05-05 12:30)
DX: H25.041 Posterior subcapsular polar age-related cataract, right eye (principal); I10 Essential (primary) hypertension
CPT/HCPCS: 66984; V2632

== ENCOUNTER 2021-06-02 22:32 | Outpatient (REF) | payer BC, SELFPAY ==
[2021-06-02 23:25] LABS: Vitamin B12 117 pg/mL (193-986)
== END 2021-06-02 22:33 | disposition home or self-care (01) ==
LOC: NCHCN 22:32
PROVIDERS: PCP Physician Assistant; Visit Provider Physician Assistant
DX: R20.8 Other disturbances of skin sensation (principal)
CPT/HCPCS: 82607

== ENCOUNTER 2021-09-15 05:42 | Emergency (ER) | payer BC, SELFPAY ==
[2021-09-15] VITALS (24 sets, daily range): BP systolic 135–185; BP diastolic 87–103; PULSE 52–68; RESP 14–20; TEMP 36.5–36.9; O2SAT 97–100
--- NOTE | 2021-09-15 05:45 | RT.EKG_ITS ---
APPROVED REPORT Exam: Resting ECG Reason for Exam: chest pain Patient Location: E HR:60 bpm ECG Measurements Heart Rate 60 AXIS CA 169 P 48 QRSd 92 QRS -35 QT 412 T 48 QTc 414 Conclusion Sinus rhythm...normal P axis, V-rate 60- 99 Left axis deviation...QRS axis (-30,-90) Physician: no stemi, inverted t wave in V1 and V2
--- NOTE | 2021-09-15 06:03 | W.ED.GENAD ---
Discharge Plan Disposition Patient Disposition: HOME Condition: Good Discharge Details Clinical Impression: Palpitations Primary Care Provider: Demetris Duffy ED Provider: Summer Iverson Home Meds and New Rx's Prescriptions: New atenolol 50 mg tablet 50 mg PO QHS Qty: 30 0RF Continued amlodipine 5 mg Tablet 5 mg PO DAILY 0RF valacyclovir 500 mg Tablet 500 mg PO DAILY 0RF Discontinued atenolol 25 MG tablet 25 mg PO DAILY 0RF Discharge Instructions Instructions: Atenolol (By mouth), Heart Palpitations (ED) Additional Instructions: Please return immediately to the emergency department if you develop any new or worsening symptoms, if your condition does not improve as expected, or if you become otherwise concerned. It is extremely important that you call soon as possible to make an appointment to be seen in follow-up for this visit by your primary care doctor and a clinical training coordinator as we discussed. Please stop taking your 25 mg of atenolol in the morning, and begin taking 50 mg of atenolol at night as was recommended by cardiology. Referrals: Demetris Duffy [Primary Care Provider] - Mali Cheung MD [ [facility] STAFF PHYSICIAN] - Discharge Orders Other Ambulatory Orders: Holter Monitor (Routine) Timeframe: 1 Week Facility: [facility] - Location: Respiratory Therapy Ordered By: Summer Iverson Discharge Data Discharge Date/Time-TO BE ENTERED AT DEPARTURE: 09/15/21 11:13 Medical Decision Making <Ciaran Chou DO - Last Filed: 09/15/21 07:31> This is a 66-year-old female with past medical history of hypertension who is on atenolol, presents today for evaluation of irregular heartbeat. Patient states that this morning at 5 AM when she woke up she noticed a rapid heart rate sensation in her chest, heart rate that she measured was 169 bpm. She took her morning atenolol and amlodipine, and came to the ER for further assessment. She denies any significant chest pain. She denies any recent long surgery or long trips. She is an avid hiker, and hikes regularly and frequently every week. She gets regular 10 mile hikes without difficulty. She does state that her last hike within the past week she felt a little bit more tired than normal. She denies any new medications, she did drink a beer last night but no other excessive alcohol intake. She denies any cocaine, meth, or other illicit drugs. She does admit to a strong family history of atrial fibrillation from her father, and he did require ablation. No other complaints at this time. No other modifying factors. Physical exam is notably unremarkable, heart rate is normal at this time. Blood pressure is elevated. She denies any chest pain at this time. Patient otherwise feels well. I suspect that the patient had an episode of paroxysmal atrial fibrillation which resolved on its own. She did take her morning atenolol at 5 AM when the symptoms initially started. However we will evaluate for electrolyte abnormality, signs of cardiac strain with a proBNP, or thyroid dysfunction. We will gently rehydrate, monitor closely and reassess. I do feel this patient if her work-up is benign will benefit from an outpatient Holter monitor for further assessment. The patient does have a chads vas 2 score of 2 points, secondary to her gender and hypertension history. No discussion of anticoagulation will need to be brought up. EKG shows no abnormalities at this time and is otherwise stable. 7:30 AM Laboratory work-up has returned unremarkable, electrolytes stable, troponin and proBNP normal. Thyroid function normal. Patient continues to feel well, EKG is stable and rhythm strip is unchanged. We are still pending repeat troponin at this time. I did rediscuss anticoagulation and rate limiting beta-blockers with the patient and she is notably hesitant about this. 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 She is concerned that blood thinners will put her at risk, and that the beta-melita will diminish her exercise capability. We will contact cardiology and discern their recommendations in this situation as well. Case will be signed out to my colleague Gricel Iverson. <Summer Iverson MD - Last Filed: 09/22/21 07:50> This is a 66-year-old female with past medical history of hypertension who is on atenolol, presents today for evaluation of irregular heartbeat. Patient states that this morning at 5 AM when she woke up she noticed a rapid heart rate sensation in her chest, heart rate that she measured was 169 bpm. She took her morning atenolol and amlodipine, and came to the ER for further assessment. She denies any significant chest pain. She denies any recent long surgery or long trips. She is an avid hiker, and hikes regularly and frequently every week. She gets regular 10 mile hikes without difficulty. She does state that her last hike within the past week she felt a little bit more tired than normal. She denies any new medications, she did drink a beer last night but no other excessive alcohol intake. She denies any cocaine, meth, or other illicit drugs. She does admit to a strong family history of atrial fibrillation from her father, and he did require ablation. No other complaints at this time. No other modifying factors. Physical exam is notably unremarkable, heart rate is normal at this time. Blood pressure is elevated. She denies any chest pain at this time. Patient otherwise feels well. I suspect that the patient had an episode of paroxysmal atrial fibrillation which resolved on its own. She did take her morning atenolol at 5 AM when the symptoms initially started. However we will evaluate for electrolyte abnormality, signs of cardiac strain with a proBNP, or thyroid dysfunction. We will gently rehydrate, monitor closely and reassess. I do feel this patient if her work-up is benign will benefit from an outpatient Holter monitor for further assessment. The patient does have a chads vas 2 score of 2 points, secondary to her gender and hypertension history. No discussion of anticoagulation will need to be brought up. EKG shows no abnormalities at this time and is otherwise stable. 7:30 AM Laboratory work-up has returned unremarkable, electrolytes stable, troponin and proBNP normal. Thyroid function normal. Patient continues to feel well, EKG is stable and rhythm strip is unchanged. We are still pending repeat troponin at this time. I did rediscuss anticoagulation and rate limiting beta-blockers with the patient and she is notably hesitant about this. 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 She is concerned that blood thinners will put her at risk, and that the beta-melita will diminish her exercise capability. We will contact cardiology and discern their recommendations in this situation as well. Case will be signed out to my colleague Gricel Iverson. Summer Iverson MD Assumed care from Dr. Chou at time of shift change with repeat troponin, discussion with cardiology pending. Repeat troponin negative. Patient without palpitations, dysrhythmia on monitor, or any symptoms since I assumed care. I discussed patient presentation and results with Dr. Cheung of cardiology, who recommends Holter monitor, hold anticoagulation at point given unknown rhythm in the field, increase atenolol 50 mg nightly, follow-up with cardiology. No further changes recommended. I discussed this plan with the patient including side effect of atenolol, she is amenable to the plan. Patient states that she feels very well and is ready to go home. I had a discussion with Patient regarding return to emergency department precautions, home care, and importance of outpatient follow-up. Pt verbalizes understanding of the plan and is amenable. Patient discharged to home with clear plan for outpatient follow-up. All questions were answered. Disposition decision was made weighing the risks and benefits of hospitalization versus outpatient treatment, the risk for further decompensation, and the patient's wishes. HPI <Ciaran Chou, - Last Filed: 09/15/21 07:31> General Date/Time Provider Initiated Documentation: 09/15/21 05:46. HPI Narrative: This is a 66-year-old female with past medical history of hypertension who is on atenolol, presents today for evaluation of irregular heartbeat. Patient states that this morning at 5 AM when she woke up she noticed a rapid heart rate sensation in her chest, heart rate that she measured was 169 bpm. She took her morning atenolol and amlodipine, and came to the ER for further assessment. She denies any significant chest pain. She denies any recent long surgery or long trips. She is an avid hiker, and hikes regularly and frequently every week. She gets regular 10 mile hikes without difficulty. She does state that her last hike within the past week she felt a little bit more tired than normal. She denies any new medications, she did drink a beer last night but no other excessive alcohol intake. She denies any cocaine, meth, or other illicit drugs. She does admit to a strong family history of atrial fibrillation from her father, and he did require ablation. No other complaints at this time. No other modifying factors. Related Data Home Medications Medication Instructions Recorded Confirmed amlodipine 5 mg tablet 5 mg PO DAILY 09/15/21 09/15/21 atenolol 50 mg tablet 50 mg PO QHS #30 tab 09/15/21 valacyclovir 500 mg tablet 500 mg PO DAILY 09/15/21 09/15/21 Previous Rx's Medication Instructions Recorded atenolol 50 mg tablet 50 mg PO QHS #30 tab 09/15/21 Allergies Allergy/AdvReac Type Severity Reaction Status Date / Time ciprofloxacin [From Cipro] Allergy Severe Skin Rash Unverified 05/05/21 10:15 Sulfa (Sulfonamide Allergy Severe Skin Rash Unverified 05/05/21 10:15 Antibiotics) General Stated Complaint: Palpitatns RAFAT: 2 Review of Systems <Ciaran Chou DO - Last Filed: 09/15/21 07:31> All systems reviewed & are unremarkable except as noted in HPI and below PFSH <Ciaran Chou DO - Last Filed: 09/15/21 07:31> All Active Problems (Updated 09/15/21 @ 10:36 by Summer Iverson MD) Palpitations (Acute) Medical History Hypertension Surgical History History of colonoscopy History of surgery tennis elbow Hx of cataract surgery Social History Smoking/Tobacco Use Status: Former Tobacco Use Smoking risk assessment performed?: Yes Drug use: Rarely Substance use type: marijuana Details: pt denies any use today Do you feel safe at home: Yes Do you feel safe in your relationship?: Yes Exam <Ciaran Chou DO - Last Filed: 09/15/21 07:31> Narrative Exam Narrative: 1.Const: Well-nourished, Well-developed, appearing stated age 2.Eyes: PERRL, no conjunctival injection, and symmetrical lids. 3.ENT: Atraumatic external nose and ears. Moist MM. Neck: Symmetric, trachea midline, No thyromegaly. 4.CVS: +S1/S2, No murmurs or gallops. Peripheral pulses 2+ and equal in all extremities. Brisk capillary refill in all extremities. 5.RESP: Unlabored respiratory effort. Clear to auscultation bilaterally. No wheezes rales or rhonchi 6.GI: Soft, Nontender/Nondistended, No hepatosplenomegaly. No guarding or rebound. 7.MSK: Normocephalic/Atraumatic, Extremities w/o deformity or ttp No cyanosis or clubbing, Normal movement of all extremities, no calf tenderness. 8.Skin: Warm, Dry. No rashes or lesions. 9.Neuro: recruiter coordinator II-XII grossly intact. Sensation grossly intact, no focal neurologic deficits. 10.Psych: (AAO) x3. Appropriate mood and affect Course <Ciaran Chou DO - Last Filed: 09/15/21 07:31> Vital Signs Vital signs: Vital Signs Temperature 36.5 C 09/15/21 05:48 Pulse 68 09/15/21 05:48 Respiratory Rate 14 09/15/21 05:48 Blood Pressure 185/102 H 09/15/21 05:48 Pulse Oximetry 100 09/15/21 05:48 Temperature 36.5 C 09/15/21 05:48 Pulse 68 09/15/21 05:48 Respiratory Rate 14 09/15/21 05:48 Respiratory Effort Non-Labored 09/15/21 05:52 Blood Pressure 185/102 H 09/15/21 05:48 Pulse Oximetry 100 09/15/21 05:48 Pain Level 0 09/15/21 05:48 Sign Out <Ciaran Chou DO - Last Filed: 09/15/21 07:31> Sign Out Data: Sign Out Comment: Pending delta troponin, and discussion with cardiology. Last updated by Ciaran Chou DO at 09/15/21 07:56
[2021-09-15 06:11] LABS: Abs Immature Grans 0.01 10^3/uL (0.0-0.06); Absolute Basophil Count 0.06 10^3/uL (0.0-0.2); Absolute Lymphocyte Count 2.76 10^3/uL (1.2-3.4); Absolute Monocyte Count 0.41 10^3/uL (0.1-0.8); Absolute Neutrophil Count 2.25 10^3/uL (1.2-6.7); Basophils % 1.1; Eosinophils % 3.5; HCT 39.1 % (36.0-46.0); HGB 13.4 g/dL (11.2-15.7); Immature Grans % 0.2; Lymphocytes % 48.5; MCH 33.8 pg (27.0-33.0); MCHC 34.3 % (32.0-36.0); MCV 98.5 fL (80-95); MPV 9.7 fL (8.0-11.0); Monocytes % 7.2; Neutrophils % 39.5; Nucleated RBC 0 %; Platelet Count 261 10^3/uL (130-400); RBC 3.97 10^6/uL (3.93-5.22); RDW 11.4 % (11.7-14.6); RDW-SD 41.7 fL; WBC 5.69 10^3/uL (4.4-10.8)
[2021-09-15] MEDS: Aspirin 81 MG CHEW 324 MG CH (06:26)
[2021-09-15 06:37] LABS: ALT 24 U/L (14-59); AST 27 U/L (15-37); Alkaline Phosphatase 68 U/L (46-116); Anion Gap 7.2 mmol/L (3-11); BUN 9 mg/dL (7-18); Bilirubin, Total 0.7 mg/dL (0.2-1.0); CO2 28.8 mmol/L (21.0-32.0); CREATININE 0.8 mg/dL (0.55-1.02); Calcium 9.1 mg/dL (8.5-10.1); Chloride 101 mmol/L (98-107); Glucose 111 mg/dL (74-106); NT-proBNP 119 pg/mL (<300); Potassium 3.6 mmol/L (3.5-5.1); Sodium 137 mmol/L (136-145); TSH (W/Ref FT4) 2.99 uIU/mL (0.36-3.74); Total Protein 7.6 g/dL (6.4-8.2); Troponin I < 50 ng/L (<or=60)
[2021-09-15 09:31] LABS: Troponin I < 50 ng/L (<or=60)
== END 2021-09-15 11:13 | disposition home or self-care (01) ==
PROVIDERS: Student in an Organized Health Care Education/Training Program; Emergency Provider Student in an Organized Health Care Education/Training Program; PCP Physician Assistant
DX: R42 Dizziness and giddiness; R00.2 Palpitations; R07.9 Chest pain, unspecified
CPT/HCPCS: 36415; 80053; 93005; 99283; 83735; 83880; 84443; 84484; 85025; 93010

== ENCOUNTER 2021-09-15 10:14 | Outpatient (RCR) | payer BC, SELFPAY ==
--- NOTE | 2021-09-15 10:30 | HOLTER_ITS ---
APPROVED REPORT Conclusion This is a 48-hour Holter monitor ordered for palpitations Predominant rhythm was sinus with an average rate of 60. Minimum was 47, maximum 95 There were no ventricular dysrhythmias There were rare atrial premature beats. There was one 7 beat atrial run which was asymptomatic There was no atrial fibrillation, no high-grade AV block, no pauses greater than 3 seconds Patient symptoms were reported which corresponded to sinus rhythm
== END 2021-09-25 23:59 | disposition home or self-care (01) ==
LOC: RT 10:14
PROVIDERS: PCP Physician Assistant; Visit Provider Physician Assistant
DX: R00.2 Palpitations (principal)
CPT/HCPCS: 93225; 93226

== ENCOUNTER 2021-10-14 08:16 | Outpatient (CLI) | payer BC, SELFPAY ==
--- NOTE | 2021-10-14 08:15 | RT.EKG_ITS ---
APPROVED REPORT Exam: Resting ECG Reason for Exam: palpitations Patient Location: O HR:60 bpm ECG Measurements Heart Rate 60 AXIS MN 149 P 1 QRSd 93 QRS -36 QT 409 T 40 QTc 409 Conclusion Sinus rhythm...normal P axis, V-rate 50- 99 Left axis deviation...QRS axis (-30,-90)
== END 2021-10-14 08:17 | disposition home or self-care (01) ==
LOC: DI.CARD 08:16
PROVIDERS: PCP Physician Assistant; Visit Provider Internal Medicine Cardiovascular Disease
DX: R00.2 Palpitations (principal)
CPT/HCPCS: 93010

== ENCOUNTER 2022-04-28 14:45 | Outpatient (REF) | payer BC, SELFPAY ==
[2022-04-28 15:57] LABS: HCT 36.3 % (36.0-46.0); HGB 12.8 g/dL (11.2-15.7); MCH 33.2 pg (27.0-33.0); MCHC 35.3 % (32.0-36.0); MCV 94 fL (80-95); MPV 10.4 fL (8.0-11.0); Platelet Count 274 10^3/uL (130-400); RBC 3.85 10^6/uL (3.93-5.22); RDW 11.4 % (11.7-14.6); RDW-SD 38.7 fL
[2022-04-28 16:24] LABS: ALT 16 U/L (14-59); AST 27 U/L (15-37); Albumin 4.1 g/dL (3.4-5.0); Alkaline Phosphatase 72 U/L (46-116); Anion Gap 4.8 mmol/L (3-11); BUN 12 mg/dL (7-18); Bilirubin, Total 0.9 mg/dL (0.2-1.0); CO2 31.2 mmol/L (21.0-32.0); CREATININE 0.9 mg/dL (0.55-1.02); Chloride 102 mmol/L (98-107); Estimated GFR 71.39 (mL/min/1.73m2); Glucose 111 mg/dL (74-106); Potassium 4.2 mmol/L (3.5-5.1); Sodium 138 mmol/L (136-145); Total Protein 7.7 g/dL (6.4-8.2)
[2022-04-28 17:12] LABS: Calculated LDL 119 mg/dL (<100); Cholesterol 204 mg/dL (<200); HDL Cholesterol 72 mg/dL (40-60); Triglyceride 69 mg/dL (<150); Vitamin B12 418 pg/mL (193-986)
[2022-05-03 16:18] LABS: Methylmalonic Acid 0.21 nmol/mL (<=0.40)
== END 2022-04-28 14:46 | disposition home or self-care (01) ==
LOC: NCHCN 14:45
PROVIDERS: PCP Physician Assistant; Visit Provider Physician Assistant
DX: E53.8 Deficiency of other specified B group vitamins (principal); I10 Essential (primary) hypertension
CPT/HCPCS: 80053; 80061; 80186; 85027; 82607

== ENCOUNTER 2022-05-05 16:35 | Outpatient (REF) | payer BC, SELFPAY ==
[2022-05-05 17:07] LABS: Hemoglobin A1C 5.2 % (<5.7)
== END 2022-05-05 16:36 | disposition home or self-care (01) ==
LOC: NCHCN 16:35
PROVIDERS: PCP Physician Assistant; Visit Provider Physician Assistant
DX: R73.9 Hyperglycemia, unspecified (principal)
CPT/HCPCS: 83036

== ENCOUNTER 2022-08-27 16:27 | Outpatient (REF) | payer BC, SELFPAY ==
[2022-08-27 15:28] LABS: HCT 34.6 % (36.0-46.0); HGB 11.9 g/dL (11.2-15.7); MCH 32.3 pg (27.0-33.0); MCHC 34.4 % (32.0-36.0); MCV 94 fL (80-95); MPV 10.4 fL (8.0-11.0); Platelet Count 341 10^3/uL (130-400); RBC 3.68 10^6/uL (3.93-5.22); RDW 11.8 % (11.7-14.6); RDW-SD 40.8 fL; WBC 5.69 10^3/uL (4.4-10.8)
[2022-08-27 15:42] LABS: Iron 90 ug/dL (50-170)
[2022-08-27 15:55] LABS: Anion Gap 9.5 mmol/L (3-11); BUN 12 mg/dL (7-18); CO2 25.5 mmol/L (21.0-32.0); CREATININE 0.8 mg/dL (0.55-1.02); Calcium 9.4 mg/dL (8.5-10.1); Chloride 101 mmol/L (98-107); Estimated GFR 81.72 (mL/min/1.73m2); Ferritin 89 ng/mL (8-252); Glucose 124 mg/dL (74-106); Potassium 4.5 mmol/L (3.5-5.1); Sodium 136 mmol/L (136-145)
== END 2022-08-27 16:28 | disposition home or self-care (01) ==
LOC: NCHCN 16:27
PROVIDERS: PCP Physician Assistant; Visit Provider Physician Assistant
DX: I10 Essential (primary) hypertension (principal); R71.8 Other abnormality of red blood cells
CPT/HCPCS: 80048; 85027; 82728; 83540

== ENCOUNTER 2022-10-27 12:10 | Outpatient (CLI) | payer BC, SELFPAY ==
--- NOTE | 2022-10-27 10:32 | DI.RAD_ITS ---
Exam(s) XR CHEST 2V PA LATERAL EXAM: XR CHEST 2V PA LATERAL CLINICAL HISTORY: ACUTE BRONCHITIS, J20.9. TECHNIQUE: 2D digital imaging was performed. COMPARISON: No exams were available for comparison FINDINGS: 2 views: Heart size is normal. The mediastinum is not widened. Lungs are clear. No infiltrates nor pleural effusions. IMPRESSION: No acute pulmonary findings. DATA REPOSITORY: RADIATION DOSE DELIVERED:
== END 2022-10-27 12:30 ==
PROVIDERS: PCP Physician Assistant; Visit Provider Physician Assistant
DX: J20.9 Acute bronchitis, unspecified (principal)
CPT/HCPCS: 71046

== ENCOUNTER → 2023-04-01 07:57 | Outpatient (CLI) | payer BC, SELFPAY ==
--- NOTE | 2023-04-01 | DI.DEXA_ITS ---
Exam(s) XR DEXA BONE DENSITY W/WO JAEL EXAM: XR DEXA BONE DENSITY W/WO JAEL CLINICAL HISTORY: SCREENING FOR OSTEOPOROSIS IN POSTMENOPAUSAL WOMAN,Z78.0 TECHNIQUE: Routine DEXA evaluation of the lumbar spine, hip, or forearm. COMPARISON: No exams were available for comparison FINDINGS: Performed on a Hologic unit. Lateral image: No compression fracture evident. Lumbar Spine total T-score: 0.1 Hip total T-score:-2.2 Independent reading at the level of the femoral neck yields T-score of -2.0 Forearm total T-score: -2.7 IMPRESSION: Bone mineral density measures in the normal range for the lumbar spine, osteopenia range for the hip, and osteoporosis range for the forearm bones.. Fracture risk is moderate. Note: Any spine fracture indicates 5x risk for subsequent spine fracture and 2x risk for subsequent h ip fracture. World Health Organization criteria for BMD interpretation classify patients: Normal...... T- Score at or above -1.0 Osteopenic... T- Score between -1.0 and -2.5 Osteoporosis... T-Score at or below -2.5
== END ==
PROVIDERS: PCP Physician Assistant; Visit Provider Physician Assistant
DX: Z78.0 Asymptomatic menopausal state (principal); Z13.820 Encounter for screening for osteoporosis; M85.89 Other specified disorders of bone density and structure, multiple sites
CPT/HCPCS: 77080

== ENCOUNTER 2023-09-13 13:29 | Outpatient (REF) | payer BC, MEDICARE, SELFPAY ==
[2023-09-13 15:08] LABS: HCT 36.2 % (36.0-46.0); HGB 12.4 g/dL (11.2-15.7); MCH 32.3 pg (27.0-33.0); MCHC 34.3 % (32.0-36.0); MCV 94 fL (80-95); MPV 10.4 fL (8.0-11.0); Platelet Count 258 10^3/uL (130-400); RBC 3.84 10^6/uL (3.93-5.22); RDW 11.6 % (11.7-14.6); RDW-SD 39.7 fL
[2023-09-13 16:00] LABS: ALT 17 U/L (14-59); AST 23 U/L (15-37); Alkaline Phosphatase 81 U/L (46-116); Anion Gap 8.7 mmol/L (3-11); BUN 19 mg/dL (7-18); Bilirubin, Total 0.8 mg/dL (0.2-1.0); CO2 26.3 mmol/L (21.0-32.0); CREATININE 1.3 mg/dL (0.55-1.02); Calcium 9.4 mg/dL (8.5-10.1); Calculated LDL 124 mg/dL (<100); Chloride 101 mmol/L (98-107); Cholesterol 199 mg/dL (<200); Estimated GFR 45.35 (mL/min/1.73m2); Glucose 109 mg/dL (74-106); HDL Cholesterol 63 mg/dL (40-60); Potassium 4.2 mmol/L (3.5-5.1); Sodium 136 mmol/L (136-145); Total Protein 7.1 g/dL (6.4-8.2); Triglyceride 60 mg/dL (<150)
== END 2023-09-13 13:30 | disposition home or self-care (01) ==
LOC: NCHCN 13:29
PROVIDERS: PCP Physician Assistant; Visit Provider Physician Assistant
DX: I10 Essential (primary) hypertension (principal); E78.5 Hyperlipidemia, unspecified
CPT/HCPCS: 80053; 80061; 85027

== ENCOUNTER 2023-09-20 13:06 | Outpatient (REF) | payer BC, MEDICARE, SELFPAY ==
[2023-09-20 16:15] LABS: Anion Gap 8.3 mmol/L (3-11); BUN 18 mg/dL (7-18); CO2 27.7 mmol/L (21.0-32.0); CREATININE 1.2 mg/dL (0.55-1.02); Calcium 9.1 mg/dL (8.5-10.1); Chloride 98 mmol/L (98-107); Estimated GFR 49.92 (mL/min/1.73m2); Glucose 119 mg/dL (74-106); Potassium 4.1 mmol/L (3.5-5.1); Sodium 134 mmol/L (136-145)
== END 2023-09-20 13:07 | disposition home or self-care (01) ==
LOC: NCHCN 13:06
PROVIDERS: PCP Physician Assistant; Visit Provider Physician Assistant
DX: I10 Essential (primary) hypertension (principal)
CPT/HCPCS: 80048

== ENCOUNTER → 2023-09-30 12:40 | Outpatient (BNVA) | payer MEDICARE, OTHER, SELFPAY | PROVIDERS: PCP Physician Assistant; Referring Provider Physician Assistant; Visit Provider Urology | DX: N13.30 Unspecified hydronephrosis (principal); Z98.890 Other specified postprocedural states | CPT/HCPCS: 81002; 99215 ==

== ENCOUNTER → 2023-10-04 03:30 | Outpatient (CLI) | payer MEDICARE, OTHER, SELFPAY ==
[2023-10-04] MEDS: Omnipaque 350 MG/ML 100 ML BTL IJ (08:45)
[2023-10-04] MEDS: Normal Saline - Diluent 50 ML VIAL IJ (08:46)
--- NOTE | 2023-10-04 09:00 | DI.CT_ITS ---
Exam(s) CT ABDOMEN PELVIS WO/W EXAM: CT ABDOMEN PELVIS WO/W CLINICAL HISTORY: BILAT HYDRONEPHROSIS N13.30 RT GREAST THAN LEFT. TECHNIQUE: Imaging Protocol: Axial computed tomography images with coronal and sagittal reformatted images were created and reviewed CONTRAST MATERIAL: Intravenous: Omnipaque-350 100cc Oral: Yes. COMPARISON: Recent ultrasound 09/15/2023 was reviewed. FINDINGS: Today's examination was performed in 2 stages which were approximately 7 hours apart. VISUALIZED LUNG BASES: No nodules nor pleural effusions evident. No lung base infiltrate seen. ABDOMEN: There is no ascites. LIVER: There are multiple well-defined hypodensities in the liver which have the appearance of benign cysts. The largest measures 1.2 x 1.0 cm. No dilated intrahepatic ducts. GALLBLADDER/BILIARY: No obvious gallbladder pathology. CBD is not dilated. PANCREAS: No evidence of pancreatic mass nor dilatation of the pancreatic duct. SPLEEN: Spleen is not enlarged. No significant intrasplenic lesions. Splenic and portal veins are p atent. ADRENALS: There are no significant adrenal masses. KIDNEYS: The left kidney appears unremarkable with the exception of a few small benign sub cm cortical cysts. No solid lesions in left kidney. No radiopaque calculi evident in the left kidney. Solitary left u reter appears minimally prominent. It is opacified down into the pelvis. RIGHT KIDNEY is abnormal, exhibiting severe hydronephrosis and hydroureter on. The cortical mantle i s thin and. The right ureter diameter is enlarged to 1.4 cm and appears obstructed in the right-side of the pelvis in the region of the iliac vessels. There are multiple calcifications in the region o f the dilated right ureter but these appear to be separate from the ureter and have the appearance of probable round phleboliths. The patient was brought back a few hours later for oral contrast and further imaging to determine if any of the previously injected intravenous contrast has made it into the right collecting system.. I ndeed none of the contrast has made it into the right ureter. The some in our delayed images which also were performed after oral contrast ingestion reveal the rig ht ureter at this level two B between the IVC medially and psoas muscle laterally and lying anterior to the common iliac vessels. Dorsal to it her few small densities which may be slightly prominent ly mph nodes. The multiple calcifications seem to be around but not within the dilated actual ureter. Below this level there few additional calcifications but the ureter is collapsed and not possible to determine if these other calcifications are within or outside of the ureter. We thereafter scanned the patient in the cubitus position with right-side down.. This did not at sig nificant information. The right ovary in this region is somewhat difficult to identify but there does not appear to be an o bvious ovarian mass. It appears that most of the mass??? density surrounding the lower ureter is a combination of slightly prominent iliac vessels and small bowel loops. ABDOMINAL AORTA: Abdominal aorta is not enlarged. LYMPH NODES:There is no retroperitoneal nor paraaortic adenopathy. ABDOMINAL WALL: No evidence of significant anterior abdominal wall nor inguinal hernia. GI: There is no evidence of bowel obstruction, free air, nor abscess. PELVIS: GI: No evidence of appendicitis.No evidence of sigmoid diverticulitis. LYMPH NODES: There is no intrapelvic nor inguinal adenopathy. REPRODUCTIVE: Uterus size age-appropriate. No obvious a dental masses. URINARY BLADDER: No calculi nor obvious masses evident OSSEOUS: No fractures and no significant osseous lesions. Multilevel chronic degenerative disc disease IMPRESSION: 1. There is severe unilateral right-sided hydronephrosis which is due to a high-grade obstruction of the ureter in the right-side of the pelvis in the region of the crossing iliac vessels. There is gloria e calcifications in this region which appear to be anterior to the dilated ureter and are probably ph leboliths. There also a few round calcifications below the cutoff point in the ureter which are diff icult to determine as phleboliths versus is possibly chronically within the right ureter. There does not appear to be a prominent mass in this region. Retrograde study recommended to determine if ther e is significant intrinsic ureteral pathology such is stricture/neoplasm. 2. The right kidney is severely hydronephrotic with thin cortical rim. No calculi within the right k idney and no right kidney masses. 3. Left kidney does not appear obstructed. It contains a few tiny benign cortical cysts but no solid lesions. 4. Urinary bladder appears unremarkable. RADIATION DOSE DELIVERED: Total DLP DATA REPOSITORY: All CT scans at this facility are submitted to the National Radiology Data Registry (NRDR) Dose Index Registry (DIR) with the [employer] (ACR). RADIATION OPTIMIZATION: All CT scans at this facility use at least one of these dose optimization te chniques: automated exposure control; mA and/or kV adjustment per patient size (includes targeted exa ms where dose is matched to clinical indication); or iterative reconstruction.
[2023-10-04] MEDS: Barium Sulfate 2% W/V-Creamy Vanilla Smoothie 450 ML BTL PO (15:50)
[2023-10-04] MEDS: Barium Sulfate 2% W/V-Berry Smoothie 450 ML BTL PO (15:51)
== END ==
PROVIDERS: PCP Physician Assistant; Visit Provider Physician Assistant
DX: N13.1 Hydronephrosis with ureteral stricture, not elsewhere classified (principal); K76.89 Other specified diseases of liver; N28.1 Cyst of kidney, acquired; N83.8 Other noninflammatory disorders of ovary, fallopian tube and broad ligament
CPT/HCPCS: 99443; 74178; J3490

== ENCOUNTER 2024-01-05 09:20 | Outpatient (CLI) | payer MEDICARE, OTHER, SELFPAY ==
[2024-01-05 09:21] LABS: Abs Immature Grans 0.02 10^3/uL (0.0-0.06); Absolute Basophil Count 0.06 10^3/uL (0.0-0.2); Absolute Eosinophil Count 0.14 10^3/uL (0.0-0.7); Absolute Lymphocyte Count 1.89 10^3/uL (1.2-3.4); Absolute Monocyte Count 0.48 10^3/uL (0.1-0.8); Eosinophils % 2.3 %; HCT 33.1 % (36.0-46.0); HGB 11.7 g/dL (11.2-15.7); Immature Grans % 0.3 %; MCH 32.1 pg (27.0-33.0); MCHC 35.3 % (32.0-36.0); MCV 91 fL (80-95); Monocytes % 7.9 %; Neutrophils % 57.5 %; Platelet Count 336 10^3/uL (130-400); RBC 3.64 10^6/uL (3.93-5.22); RDW 11.2 % (11.7-14.6); RDW-SD 37.7 fL; WBC 6.09 10^3/uL (4.4-10.8)
[2024-01-05 09:38] LABS: ALT 18 U/L (14-59); AST 22 U/L (15-37); Albumin 3.5 g/dL (3.4-5.0); Alkaline Phosphatase 80 U/L (46-116); Anion Gap 6.6 mmol/L (3-11); BUN 16 mg/dL (7-18); Bilirubin, Total 0.69 mg/dL (0.2-1.0); CO2 26.4 mmol/L (21.0-32.0); CREATININE 1.1 mg/dL (0.55-1.02); Calcium 9.1 mg/dL (8.5-10.1); Chloride 96 mmol/L (98-107); Estimated GFR 55.42 (mL/min/1.73m2); Glucose 106 mg/dL (74-106); LDH 145 U/L (81-234); Potassium 4.3 mmol/L (3.5-5.1); Sodium 129 mmol/L (136-145); Total Protein 7.1 g/dL (6.4-8.2)
== END 2024-01-05 09:21 | disposition home or self-care (01) ==
LOC: LBO 09:21
PROVIDERS: PCP Physician Assistant; Visit Provider Internal Medicine Hematology & Oncology
DX: C85.10 Unspecified B-cell lymphoma, unspecified site (principal)
CPT/HCPCS: 36415; 80053; 83615; 85025

== ENCOUNTER 2024-01-12 03:58 | Outpatient (CLI) | payer MEDICARE, OTHER, SELFPAY ==
[2024-01-12 07:24] LABS: Abs Immature Grans 0.04 10^3/uL (0.0-0.06); Absolute Basophil Count 0.09 10^3/uL (0.0-0.2); Absolute Eosinophil Count 0.21 10^3/uL (0.0-0.7); Absolute Lymphocyte Count 1.83 10^3/uL (1.2-3.4); Absolute Monocyte Count 0.43 10^3/uL (0.1-0.8); Absolute Neutrophil Count 2.29 10^3/uL (1.2-6.7); Basophils % 1.8 %; Eosinophils % 4.3 %; HCT 34.5 % (36.0-46.0); HGB 12.3 g/dL (11.2-15.7); Immature Grans % 0.8 %; Lymphocytes % 37.4 %; MCH 32.7 pg (27.0-33.0); MCHC 35.7 % (32.0-36.0); MCV 92 fL (80-95); MPV 8.9 fL (8.0-11.0); Monocytes % 8.8 %; Neutrophils % 46.9 %; Platelet Count 308 10^3/uL (130-400); RBC 3.76 10^6/uL (3.93-5.22); RDW 11.6 % (11.7-14.6); RDW-SD 38.5 fL; WBC 4.89 10^3/uL (4.4-10.8)
[2024-01-12 07:40] LABS: ALT 19 U/L (14-59); AST 20 U/L (15-37); Albumin 3.7 g/dL (3.4-5.0); Alkaline Phosphatase 80 U/L (46-116); Anion Gap 5.8 mmol/L (3-11); BUN 16 mg/dL (7-18); Bilirubin, Total 0.63 mg/dL (0.2-1.0); CO2 28.2 mmol/L (21.0-32.0); CREATININE 1.2 mg/dL (0.55-1.02); Calcium 9.2 mg/dL (8.5-10.1); Chloride 98 mmol/L (98-107); Estimated GFR 49.92 (mL/min/1.73m2); Glucose 88 mg/dL (74-106); LDH 144 U/L (81-234); Potassium 4.2 mmol/L (3.5-5.1); Sodium 132 mmol/L (136-145); Total Protein 7.3 g/dL (6.4-8.2)
== END 2024-01-12 03:59 | disposition home or self-care (01) ==
LOC: LBO 03:58
PROVIDERS: PCP Physician Assistant; Visit Provider Internal Medicine Hematology & Oncology
DX: C85.10 Unspecified B-cell lymphoma, unspecified site (principal)
CPT/HCPCS: 36415; 80053; 83615; 85025

== ENCOUNTER 2024-01-19 01:30 | Outpatient (CLI) | payer MEDICARE, OTHER, SELFPAY ==
[2024-01-19 07:32] LABS: Abs Immature Grans 0.02 10^3/uL (0.0-0.06); Absolute Basophil Count 0.08 10^3/uL (0.0-0.2); Absolute Eosinophil Count 0.18 10^3/uL (0.0-0.7); Absolute Monocyte Count 0.53 10^3/uL (0.1-0.8); Absolute Neutrophil Count 3.51 10^3/uL (1.2-6.7); Basophils % 1.3 %; HCT 35.1 % (36.0-46.0); HGB 12.2 g/dL (11.2-15.7); Immature Grans % 0.3 %; Lymphocytes % 28.2 %; MCH 32.8 pg (27.0-33.0); MCHC 34.8 % (32.0-36.0); MCV 94 fL (80-95); MPV 9.2 fL (8.0-11.0); Monocytes % 8.8 %; Neutrophils % 58.4 %; Platelet Count 253 10^3/uL (130-400); RBC 3.72 10^6/uL (3.93-5.22); RDW-SD 41.1 fL; WBC 6.02 10^3/uL (4.4-10.8)
[2024-01-19 07:53] LABS: ALT 18 U/L (14-59); AST 21 U/L (15-37); Albumin 3.8 g/dL (3.4-5.0); Alkaline Phosphatase 81 U/L (46-116); Anion Gap 9.2 mmol/L (3-11); BUN 15 mg/dL (7-18); Bilirubin, Total 1.07 mg/dL (0.2-1.0); CO2 27.8 mmol/L (21.0-32.0); CREATININE 1.3 mg/dL (0.55-1.02); Calcium 9.1 mg/dL (8.5-10.1); Chloride 97 mmol/L (98-107); Estimated GFR 45.35 (mL/min/1.73m2); Glucose 104 mg/dL (74-106); LDH 150 U/L (81-234); Potassium 4.1 mmol/L (3.5-5.1); Sodium 134 mmol/L (136-145); Total Protein 7.5 g/dL (6.4-8.2)
== END 2024-01-19 01:31 | disposition home or self-care (01) ==
LOC: LBO 01:30
PROVIDERS: PCP Physician Assistant; Visit Provider Internal Medicine Hematology & Oncology
DX: C85.10 Unspecified B-cell lymphoma, unspecified site (principal)
CPT/HCPCS: 36415; 80053; 83615; 85025

== ENCOUNTER 2024-01-26 02:38 | Outpatient (CLI) | payer MEDICARE, OTHER, SELFPAY ==
[2024-01-26 07:22] LABS: Abs Immature Grans 0.02 10^3/uL (0.0-0.06); Absolute Basophil Count 0.06 10^3/uL (0.0-0.2); Absolute Eosinophil Count 0.22 10^3/uL (0.0-0.7); Absolute Lymphocyte Count 1.58 10^3/uL (1.2-3.4); Absolute Monocyte Count 0.51 10^3/uL (0.1-0.8); Absolute Neutrophil Count 3.16 10^3/uL (1.2-6.7); Basophils % 1.1 %; HCT 34.6 % (36.0-46.0); HGB 11.9 g/dL (11.2-15.7); Immature Grans % 0.4 %; Lymphocytes % 28.5 %; MCH 32.4 pg (27.0-33.0); MCHC 34.4 % (32.0-36.0); MCV 94 fL (80-95); MPV 9.5 fL (8.0-11.0); Monocytes % 9.2 %; Neutrophils % 56.8 %; Platelet Count 256 10^3/uL (130-400); RBC 3.67 10^6/uL (3.93-5.22); RDW 12.1 % (11.7-14.6); RDW-SD 41.8 fL; WBC 5.55 10^3/uL (4.4-10.8)
[2024-01-26 08:01] LABS: ALT 19 U/L (14-59); AST 22 U/L (15-37); Albumin 3.6 g/dL (3.4-5.0); Alkaline Phosphatase 80 U/L (46-116); Anion Gap 8.6 mmol/L (3-11); BUN 23 mg/dL (7-18); Bilirubin, Total 0.74 mg/dL (0.2-1.0); CO2 27.4 mmol/L (21.0-32.0); CREATININE 1.3 mg/dL (0.55-1.02); Calcium 9.5 mg/dL (8.5-10.1); Chloride 98 mmol/L (98-107); Estimated GFR 45.35 (mL/min/1.73m2); Glucose 78 mg/dL (74-106); LDH 138 U/L (81-234); Sodium 134 mmol/L (136-145); Total Protein 7.2 g/dL (6.4-8.2)
== END 2024-01-26 02:39 | disposition home or self-care (01) ==
LOC: LBO 02:38
PROVIDERS: PCP Physician Assistant; Visit Provider Internal Medicine Hematology & Oncology
DX: C85.10 Unspecified B-cell lymphoma, unspecified site (principal)
CPT/HCPCS: 36415; 80053; 83615; 85025

== ENCOUNTER 2024-04-17 18:40 | Outpatient (REF) | payer MEDICARE, OTHER, SELFPAY ==
[2024-04-17 16:00] LABS: HCT 33.7 % (36.0-46.0); HGB 11.9 g/dL (11.2-15.7); MCHC 35.3 % (32.0-36.0); MCV 93 fL (80-95); MPV 10.7 fL (8.0-11.0); Platelet Count 287 10^3/uL (130-400); RBC 3.61 10^6/uL (3.93-5.22); RDW-SD 37.3 fL; WBC 4.89 10^3/uL (4.4-10.8)
[2024-04-17 17:56] LABS: Anion Gap 10.9 mmol/L (3-11); BUN 21 mg/dL (7-18); CO2 26.1 mmol/L (21.0-32.0); CREATININE 1.2 mg/dL (0.55-1.02); Chloride 103 mmol/L (98-107); Estimated GFR 49.92 (mL/min/1.73m2); Ferritin 110 ng/mL (8-252); Glucose 92 mg/dL (74-106); Potassium 4.4 mmol/L (3.5-5.1); Sodium 140 mmol/L (136-145)
[2024-04-17 18:55] LABS: Iron 90 ug/dL (50-170); Total Iron Binding Capacity 292 ug/dL (250-450); Transferrin Sat 31 % (15-50)
== END 2024-04-17 18:41 | disposition home or self-care (01) ==
LOC: NCHCN 18:40
PROVIDERS: PCP Physician Assistant; Visit Provider Physician Assistant
DX: N28.9 Disorder of kidney and ureter, unspecified
CPT/HCPCS: 80048; 85027; 82728; 83540; 83550

== ENCOUNTER 2024-04-24 00:54 | Outpatient (CLI) | payer MEDICARE, OTHER, SELFPAY ==
--- NOTE | 2024-04-24 | ETT_ITS ---
APPROVED REPORT Exam: Exercise Treadmill Patient Location: Out-Patient Room/Bed: Stress Nurse: Ivonne Mohamud RN; Cheryl Tate RN Ordering Provider:ANA GUZMAN, Contact Number: [phone] BMI: 23.62 Baseline Rhythm: Sinus Bradycardia, PVC's, PAC's Comment: T wave inversion in aVL Indications: WATKINS Medical History Medical History: hydronephrosis, palpitations, HTN, HLD, vtach, PN Cardiac Medications: amlodipine, vitamin B12, metoprolol succinate Allergies: ciprofloxacin, sulfas, bees Cardiac Risk Factors: HTN, HLD, former smoker Previous Cardiac Procedures: none Pretest Chest Pain Characteristics: No chest pain Exercise History: Physically active Physical Disabilities: none Lung Sounds: Clear to auscultation Heart Sounds: Regular Stress Test Details Test: Exercise stress testing was performed using a Adán protocol. Rest Stress HR Resting HR Supine: 57 bpm Max Heart Rate (APMHR): 154 bpm Resting HR Standin bpm Target HR (85% APMHR): 131 bpm Max HR Achieved: 140 bpm % of APMHR: 91 Recovery HR: 63 bpm HR response to stress: Normal HR response to stress BP Resting BP Supine: 124/82 mmHg Resting BP Standin/92 mmHg Max BP: 150/84 mmHg Recovery BP: 120/84 mmHg BP response to stress: Normal blood pressure response to stress. ECG Resting ECG: Sinus Bradycardia Ectopy: occasional PACs, rare PVC Stress ECG: Sinus Tachycardia ST Change: No significant ST segment changes noted Arrhythmia: occasional PVCs, rare PAC Recovery ECG: Sinus Rhythm Recovery ST Change: No significant ST segment changes noted Recovery Arrhythmia: frequent PACs, occasional PVC's Clinical Reason for Termination: Target HR Achieved Stress Symptoms: none Exercise duration: 07 min09 sec Highest Stage Reached: Stage 3: 3.4 mph at 14% grade. Exercise capacity: 8.84 METs Angina Score: None Dolan Treadmill Score: 6.8 Rate Pressure Product: [id number] Stress ECG Conclusion 1. Resting electrocardiogram was normal 2. Patient exercised on the Adán protocol completed workload of 9 METS 3. Normal heart rate and blood pressure response to exercise. The patient achieved 91% of predicted heart rate for age 4. There were no cardiac symptoms. There was no electrocardiographic evidence of myocardial ischemia 5. There were no significant dysrhythmias Dolan Treadmill Score is 6.8 which is Low risk. Stress Test Summary STAGE Time (mins) Speed (mph) Grade (%) HR BP SpO2 SYMPTOMS METS Supine 57 124/82 98 Standing 71 130/92 1 3 1.7 10 100 134/84 98 4.5 2 6 2.5 12 121 150/82 7 3 9 3.4 14 136 10 1 min recovery 97 140/80 97 3 min recovery 69 150/84 6 min recovery 63 120/84 98
== END 2024-04-24 01:14 ==
LOC: DI 00:54
PROVIDERS: PCP Physician Assistant; Visit Provider Physician Assistant
DX: R06.09 Other forms of dyspnea (principal)
CPT/HCPCS: 93016; 93018; 93017

== ENCOUNTER 2024-12-22 07:03 | Emergency (ER) | payer MEDICARE, OTHER, SELFPAY ==
[2024-12-22 07:09] VITALS: BP 175/88; PULSE 66; RESP 16; O2SAT 100
[2024-12-22 07:59] LABS: Abs Immature Grans 0.01 10^3/uL (0.0-0.06); Absolute Basophil Count 0.05 10^3/uL (0.0-0.2); Absolute Eosinophil Count 0.17 10^3/uL (0.0-0.7); Absolute Lymphocyte Count 1.91 10^3/uL (1.2-3.4); Absolute Monocyte Count 0.35 10^3/uL (0.1-0.8); Basophils % 1.1 %; Eosinophils % 3.8 %; HCT 36.6 % (36.0-46.0); HGB 12.7 g/dL (11.2-15.7); Immature Grans % 0.2 %; Lymphocytes % 42.5 %; MCH 31.8 pg (27.0-33.0); MCHC 34.7 % (32.0-36.0); MCV 92 fL (80-95); MPV 9.9 fL (8.0-11.0); Monocytes % 7.8 %; Neutrophils % 44.6 %; Platelet Count 269 10^3/uL (130-400); RBC 3.99 10^6/uL (3.93-5.22); RDW 11.5 % (11.7-14.6); RDW-SD 38.9 fL; WBC 4.49 10^3/uL (4.4-10.8)
[2024-12-22 08:04] LABS: Bilirubin Negative (Negative); Blood Trace-intact (Negative); Clarity Clear (Clear); Glucose Negative (Negative); Ketones Negative (Negative); Leukocyte Esterase Negative (Negative); Nitrite Negative (Negative); Specific Gravity 1.015 (1.005-1.025); Urobilinogen 0.2 mg/dL (Up to 0.2)
[2024-12-22 08:15] LABS: RBC 0-2 HPF (0-2); WBC Negative HPF (0-5)
--- NOTE | 2024-12-22 08:15 | DI.CT_ITS ---
Exam(s) CT ABDOMEN PELVIS W EXAM: CT ABDOMEN PELVIS W CLINICAL HISTORY: LLQ pain, eval for stone/diverticulitis TECHNIQUE: Imaging Protocol: Axial computed tomography images with coronal and sagittal reformatted images were created and reviewed. CONTRAST MATERIAL: Intravenous: Omnipaque 350 Contrast volume:75 mL Oral: No COMPARISON: CT CT ABDOMEN PELVIS WO/W from 10/04/2023 FINDINGS: ABDOMEN: Lung Bases: No acute abnormality. Liver: Normal density. There are multiple hypodensities in the liver likely reflecting cysts. No suspicious hepatic masses are present. Portal, Superior Mesenteric, and Splenic Veins: Unremarkable. Gallbladder and Biliary Tract: No radiodense calculus or dilation. Pancreas: Normal density, no abnormal calcifications or inflammatory process. Spleen: Normal. Adrenals: No masses seen. Kidneys: There is significant global atrophy of the right kidney. The left kidney is normal in size. There are simple cysts seen on the left kidney. No follow-up is recommended. No radiodense stones or obstructive uropathy. No masses seen. There is a retroaortic left renal vein. Abdominal Aorta: Abdominal portion non-dilated. Atherosclerotic calcification is present. Bowel: No obstruction or bowel wall thickening. Appendix is unremarkable. The distal colon is nondistended limiting evaluation. No diverticular disease is seen. Peritoneal Cavity: No ascites, collection or mesenteric inflammatory response. No free air. Lymph Nodes: Within normal limits. Bones: Within normal limits for the patient's age. Soft Tissues: Unremarkable. PELVIS: Bladder: Symmetric distention, no gross wall thickening. Reproductive Organs: There is again seen a calcified mass in the pelvis adjacent to the posterior uterus which may represent a calcified uterine fibroid. Nonemergent pelvic ultrasound may be considered for further evaluation. Lymph Nodes: Within normal limits. Bones: Within normal limits for the patient's age. IMPRESSION: 1. No evidence to suggest acute diverticulitis. 2. No evidence of obstructive uropathy. 3. Atrophic right kidney. 4. Stable calcification in the pelvis adjacent to the posterior aspect of the uterus which may represent a calcified uterine fibroid. Nonemergent pelvic ultrasound may be considered for further evaluation. RADIATION DOSE DELIVERED: 371.54mGy.cm Total DLP DATA REPOSITORY: All CT scans at this facility are submitted to the National Radiology Data Registry (NRDR) Dose Index Registry (DIR) with the [employer] (A[employer]). RADIATION OPTIMIZATION: All CT scans at this facility use at least one of these dose optimization techniques: automated exposure control; mA and/or kV adjustment per patient size (includes targeted exams where dose is matched to clinical indication); or iterative reconstruction.
[2024-12-22 08:16] LABS: ALT 22 U/L (14-59); AST 24 U/L (15-37); Albumin 4.4 g/dL (3.4-5.0); Alkaline Phosphatase 91 U/L (46-116); Anion Gap 10.2 mmol/L (3-11); BUN 16 mg/dL (7-18); Bacteria Negative HPF (Negative); Bilirubin, Total 0.9 mg/dL (0.2-1.0); C & S Indicated? No; CO2 28.8 mmol/L (21.0-32.0); Calcium 9.8 mg/dL (8.5-10.1); Casts Negative LPF (Negative); Chloride 97 mmol/L (98-107); Crystals Negative HPF (Negative); Epithelial Cells Negative HPF (Negative); Estimated GFR 61.75 (mL/min/1.73m2); Glucose 117 mg/dL (74-106); Mucus Negative (Negative); Potassium 3.7 mmol/L (3.5-5.1); Sodium 136 mmol/L (136-145)
[2024-12-22] MEDS: Normal Saline - Diluent 50 ML VIAL IJ (08:37)
[2024-12-22] MEDS: Omnipaque 350 MG/ML 500 ML BTL-Imaging package 75 ML IJ (08:41)
--- NOTE | 2024-12-22 08:49 | ED.GENADUL_ITS ---
Discharge Plan Disposition Patient Disposition: Home Condition: Good Discharge Details Clinical Impression: Acute left flank pain, Mass of uterus Primary Care Provider: Demetris Duffy ED Provider: Ciaran Chou Home Meds and New Rx's Prescriptions: No Action metoprolol succinate 50 mg tablet extended release 24 hr 50 mg PO DAILY amlodipine 5 mg Tablet 5 mg PO DAILY Discharge Instructions Instructions: Flank Pain ED Additional Instructions: At this time your CT scan and imaging has returned normal. You do have an atypical uterine fibroid, which does require further outpatient ultrasound for further assessment and evaluation. Please follow-up closely with your chimney builder brick and family doctor for further testing. In the meantime please drink plenty of fluid and stay well-hydrated. Take Tylenol as needed for pain. Use a heating pad on your flank as needed. If you notice any worsening of your symptoms, or any new symptoms such as vomiting, diarrhea, fever, chills, shortness of breath, chest pain, numbness, weakness, or fainting , please return immediately to the emergency department for reevaluation. Please follow up with your primary care provider as soon as possible for reassessment and reevaluation. As always, it was a pleasure participating in your medical care today. Referrals: Demetris Duffy [Primary Care Provider, Medicine] HPI General Date/Time Provider Initiated Documentation: 12/22/24 07:18 . 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 Patient states that about 4 days ago she developed mild left-sided flank achiness, no urinary complaints, no hematuria or dysuria. Symptoms persisted and were usually associated with movement however this morning the pain was notably worse on the left. She is felt nauseous but denies vomiting. She denies hematuria, diarrhea, chest pain or shortness of breath. She has no history of kidney stones. She denies any other complaints at this time. Related Data Home Medications ?Medication ?Instructions ?Recorded ?Confirmed amlodipine 5 mg tablet 5 mg PO DAILY 09/15/2112/22 metoprolol succinate 50 mg 50 mg PO DAILY 09/30/23 tablet,extended release 24 hr Allergies Allergy/AdvReac Type Severity Reaction Status Date / Time ciprofloxacin (From Cipro) Allergy Severe Skin Rash Verified 12/22/24 07:14 Sulfa (Sulfonamide Allergy Severe Skin Rash Verified 12/22/24 07:14 Antibiotics) General Stated Complaint: FlankPain RAFAT: 3 Exam Narrative Exam Narrative: 1.Const: Well-nourished, Well-developed, appearing stated age 2.Eyes: PERRL, no conjunctival injection, and symmetrical lids. 3.ENT: Atraumatic external nose and ears. Moist MM. Neck: Symmetric, trachea midline, No thyromegaly. 4.CVS: +S1/S2, Peripheral pulses 2+ and equal in all extremities. Brisk capillary refill in all extremities. 5.RESP: Unlabored respiratory effort. Clear to auscultation bilaterally. No wheezes rales or rhonchi 6.GI: Soft, Nontender/Nondistended, No hepatosplenomegaly. No guarding or rebound. Mild left-sided CVA tenderness 7.MSK: Normocephalic/Atraumatic, Extremities w/o deformity or ttp No cyanosis or clubbing, Normal movement of all extremities 8.Skin: Warm, Dry. No rashes or lesions. 9.Neuro: residential program coordinator II-XII grossly intact. Sensation grossly intact, no focal neurologic deficits. 10.Psych: (AAO) x3. Appropriate mood and affect Course Vital Signs Vital signs: Vital Signs Pulse 66 12/22/24 07:09 Respiratory Rate 16 12/22/24 07:09 Blood Pressure 175/88 H 12/22/24 07:09 Pulse Oximetry 100 12/22/24 07:09 Pulse 66 12/22/24 07:09 Respiratory Rate 16 12/22/24 07:09 Blood Pressure 175/88 H 12/22/24 07:09 Pulse Oximetry 100 12/22/24 07:09 Oxygen Delivery Method Room Air 12/22/24 07:09 Oxygen Flow Rate 0 12/22/24 07:09 Lab/Test Results Lab/Test Results: 12/22/24 07:45 Urine - Clean Catch Urine Culture - Pending Laboratory Tests Range/Units 12/22/24 07:45 WBC (4.4-10.8) 10^3/uL 4.49 RBC (3.93-5.22) 10^6/uL 3.99 Hgb (11.2-15.7) g/dL 12.7 Hct (36.0-46.0) % 36.6 MCV (80-95) fL 92 MCH (27.0-33.0) pg 31.8 MCHC (32.0-36.0) % 34.7 RDW (11.7-14.6) % 11.5 L Plt Count (130-400) 10^3/uL 269 MPV (8.0-11.0) fL 9.9 Immature Gran % % 0.2 Neutrophils % % 44.6 Lymphocytes % % 42.5 Monocytes % % 7.8 Eosinophils % % 3.8 Basophils % % 1.1 Nucleated RBC % (0.0-0.3) % 0.0 Absolute Neutrophils (1.2-6.7) 10^3/uL 2.00 Absolute Lymphocytes (1.2-3.4) 10^3/uL 1.91 Absolute Monocytes (0.1-0.8) 10^3/uL 0.35 Absolute Eosinophils (0.0-0.7) 10^3/uL 0.17 Absolute Basophils (0.0-0.2) 10^3/uL 0.05 Sodium (136-145) mmol/L 136 Potassium (3.5-5.1) mmol/L 3.7 Chloride (98-107) mmol/L 97 L Carbon Dioxide (21.0-32.0) mmol/L 28.8 Anion Gap (3-11) mmol/L 10.2 BUN (7-18) mg/dL 16 Creatinine (0.55-1.02) mg/dL 1.0 Est GFR (CKD-EPI 2020) (mL/min/1.73m2) 61.75 Glucose (74-106) mg/dL 117 H Calcium (8.5-10.1) mg/dL 9.8 Total Bilirubin (0.2-1.0) mg/dL 0.9 AST (15-37) U/L 24 ALT (14-59) U/L 22 Alkaline Phosphatase (46-116) U/L 91 Total Protein (6.4-8.2) g/dL 8.0 Albumin (3.4-5.0) g/dL 4.4 Urine Color (Yellow) Yellow Urine Clarity (Clear) Clear Urine pH (5-8) 7.0 Ur Specific [place] (1.005-1.025) 1.015 Urine Protein (Neg-Trace) mg/dL Negative Urine Ketones (Negative) mg/dL Negative Urine Blood (Negative) Trace-intact H Urine Nitrite (Negative) Negative Urine Bilirubin (Negative) Negative Urine Urobilinogen (Up to 0.2) mg/dL 0.2 Ur Leukocyte Esterase (Negative) Negative Urine RBC (0-2) HPF 0-2 Urine WBC (0-5) HPF Negative Ur Epithelial Cells (Negative) HPF Negative Urine Crystals (Negative) HPF Negative Urine Bacteria (Negative) HPF Negative Urine Casts (Negative) LPF Negative Urine Mucus (Negative) Negative Ur Culture Indicated? 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 Patient states that about 4 days ago she developed mild left-sided flank achiness, no urinary complaints, no hematuria or dysuria. Symptoms persisted and were usually associated with movement however this morning the pain was notably worse on the left. She is felt nauseous but denies vomiting. She denies hematuria, diarrhea, chest pain or shortness of breath. She has no history of kidney stones. She denies any other complaints at this time. Exam demonstrates well-appearing female, no guarding or rebound, mild left-sided CVA tenderness. Concern differential include diverticulitis, urolithiasis, UTI. Will evaluate for these etiologies, rehydrate, monitor closely and reassess. 10:[address] scan has returned, no evidence of acute process in the abdomen, no signs of diverticulitis, obstructive uropathy or other abnormality. There is evidence of stable calcification in the pelvis adjacent to the uterus which may represent a calcified uterine fibroid. Radiology recommends nonemergent follow-up and u ltrasonography. I discussed this with the patient, she will follow-up with her chimney builder brick for further imaging. Additionally, we discussed the patient's reassuring laboratory workup including negative urinalysis and normal blood work. Patient feels well, and feels comfortable going home. Symptoms I suspect are likely musculoskeletal in nature with the otherwise benign reassuring workup. However an abundance of precaution we will recommend close monitoring of symptoms and prompt return if symptoms worsen or return. Patient understands. Patient stable for discharge. Discussed with flags for which to return. I have extensively reviewed the treatment plan and discharge instructions with the patient. I have addressed all patient concerns at this time. The patient was made aware of what symptoms to monitor for that would warrant a return to the emergency department. Discussed the plan with the patient, they demonstrate verbal understanding and agreement with our assessment and plan at this time. The documentation in this chart was dictated using [employer] dictation software. Please excuse any dictation errors. FINDINGS: ABDOMEN: Lung Bases: No acute abnormality. Liver: Normal density. There are multiple hypodensities in the liver likely reflecting cysts. No suspicious hepatic masses are present. Portal, Superior Mesenteric, and Splenic Veins: Unremarkable. Gallbladder and Biliary Tract: No radiodense calculus or dilation. Pancreas: Normal density, no abnormal calcifications or inflammatory process. Spleen: Normal. Adrenals: No masses seen. Kidneys: There is significant global atrophy of the right kidney. The left kidney is normal in size. There are simple cysts seen on the left kidney. No follow-up is recommended. No radiodense stones or obstructive uropathy. No masses seen. There is a retroaortic left renal vein. Abdominal Aorta: Abdominal portion non-dilated. Atherosclerotic calcification is present. Bowel: No obstruction or bowel wall thickening. Appendix is unremarkable. The distal colon is nondistended limiting evaluation. No diverticular disease is seen. Peritoneal Cavity: No ascites, collection or mesenteric inflammatory response. No free air. Lymph Nodes: Within normal limits. Bones: Within normal limits for the patient's age. Soft Tissues: Unremarkable. PELVIS: Bladder: Symmetric distention, no gross wall thickening. Reproductive Organs: There is again seen a calcified mass in the pelvis adjacent to the posterior uterus which may represent a calcified uterine fibroid. Nonemergent pelvic ultrasound may be considered for further evaluation. Lymph Nodes: Within normal limits. Bones: Within normal limits for the patient's age. IMPRESSION: 1. No evidence to suggest acute diverticulitis. 2. No evidence of obstructive uropathy. 3. Atrophic right kidney. 4. Stable calcification in the pelvis adjacent to the posterior aspect of the uterus which may represent a calcified uterine fibroid. Nonemergent pelvic u ltrasound may be considered for further evaluation. PFSH All Active Problems (Updated 12/22/24 @ 10:51 by Ciaran Chou DO) Mass of uterus (Acute) Acute left flank pain (Acute) Hydronephrosis (Acute) Palpitations (Acute) Medical History (Updated 12/22/24 @ 10:51 by Ciaran Chou DO) Hypertension Surgical History (Updated 09/30/23 @ 14:07 by Morgan Puente MD) H/O dilation and curettage Hx of cataract surgery History of colonoscopy History of surgery tennis elbow Social History (Updated 10/14/21 @ 09:23 by Nallely Del Angel RN) Smoking/Tobacco Use Status: Former Tobacco Use Smoking risk assessment performed?: Yes Drug use: Rarely Substance use type: marijuana Details: pt denies any use today 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
[2024-12-22 10:57] VITALS: BP 130/84; PULSE 71; RESP 16; O2SAT 98
== END 2024-12-22 11:06 | disposition home or self-care (01) ==
PROVIDERS: Emergency Provider Student in an Organized Health Care Education/Training Program; PCP Physician Assistant
DX: R10.9 Unspecified abdominal pain (principal); D39.0 Neoplasm of uncertain behavior of uterus; I10 Essential (primary) hypertension; N26.1 Atrophy of kidney (terminal); Z87.891 Personal history of nicotine dependence
CPT/HCPCS: 36415; 80053; 99285; 74177; 81003; 81015; 85025; 87086; 99284

== ENCOUNTER 2025-01-23 03:37 | Outpatient (CLI) | payer MEDICARE, OTHER, SELFPAY ==
--- NOTE | 2025-01-23 | DI.US_ITS ---
Exam(s) US PELVIS EXAM: US PELVIS TRANSVAGINAL CLINICAL HISTORY: UTERINE MASS,N85.8 TECHNIQUE: Transabdominal was performed using standard protocol. COMPARISON: US PELVIS TRANSVAG from 12/18/2015 CR XR DEXA BONE DENSITY W/WO JAEL from 04/01/[address] ABDOMEN PELVIS WO/W from 10/04/[address] ABDOMEN PELVIS W from 12/22/2024 FINDINGS: The exam is limited with only trans abdominal images. Patient declined transvaginal imaging. UTERUS: Not well seen. Measured at 6 x 4.5 x 5.7. Endometrium: Not visualized Myometrium: Calcification seen at the posterior aspect of the uterus on recent CT is not visualized. Cervix: Not well seen OVARIES: Not visualized. The ovaries have an atrophic appearance on recent CT. CUL-DE-SAC: Free fluid: None. IMPRESSION: Limited exam. The uterus is not well visualized. These calcified lesion seen posterior to the uterus on CT was not able to be visualized. This lesion is purely calcified and the is unchanged from 2023. It could be a calcified fibroid or numb mesenteric calcification versus related to bowel. This is of doubtful clinical significance. DATA REPOSITORY:
== END 2025-01-23 03:57 ==
LOC: DI 03:37
PROVIDERS: PCP Physician Assistant; Visit Provider Physician Assistant
DX: N85.8 Other specified noninflammatory disorders of uterus (principal)
CPT/HCPCS: 76856

== ENCOUNTER 2025-06-26 00:25 | Outpatient (CLI) | payer MEDICARE, OTHER, SELFPAY ==
[2025-06-26 13:12] LABS: Abs Immature Grans 0.01 10^3/uL (0.0-0.06); HCT 32.8 % (36.0-46.0); HGB 11.3 g/dL (11.2-15.7); Immature Grans % 0.2 %; MCH 31.7 pg (27.0-33.0); MCHC 34.5 % (32.0-36.0); MCV 92 fL (80-95); MPV 9.2 fL (8.0-11.0); Platelet Count 238 10^3/uL (130-400); RBC 3.57 10^6/uL (3.93-5.22); RDW 11.6 % (11.7-14.6); RDW-SD 39.4 fL; WBC 5.17 10^3/uL (4.4-10.8)
[2025-06-26 13:35] LABS: ALT 10 U/L (10-49); AST 27 U/L (<34); Albumin 4.2 g/dL (3.2-5.0); Alkaline Phosphatase 72 U/L (46-116); Anion Gap 6.7 mmol/L (3-11); BUN 14 mg/dL (9-23); Bilirubin, Total 0.5 mg/dL (0.2-1.2); CO2 27.3 mmol/L (20.0-31.0); Calcium 9.4 mg/dL (8.3-10.6); Chloride 101 mmol/L (98-107); Glucose 105 mg/dL (74-106); LDH 146 U/L (120-246); Potassium 3.9 mmol/L (3.5-5.1); Sodium 135 mmol/L (136-145); Total Protein 7.0 g/dL (5.7-8.2)
== END 2025-06-26 00:26 | disposition home or self-care (01) ==
LOC: LBO 00:25
PROVIDERS: PCP Physician Assistant; Visit Provider Nurse Practitioner Adult Health
DX: C82.18 Follicular lymphoma grade II, lymph nodes of multiple sites (principal)
CPT/HCPCS: 36415; 80053; 83615; 85025